=== PATIENT | female | born 1945 | race Caucasian/White ===

== ENCOUNTER 2016-12-06 06:49 | Inpatient (IN) | payer OTHER ==
[~2016-12-06] VITALS: Ht 165.1 cm; Wt 85.1 kg
[~2016-12-06 06:49] MED LIST: ACET325T40 PO; AMIO200T PO; NICO-523 TRANSDERM; RIVA10TA PO
[2016-12-06 06:54] VITALS: Ht 165.1 cm; Wt 85.1 kg
[2016-12-06] MEDS ORDERED: ALBUTEROL 0.083% (NEB) 2.5 MG/3 ML AMP HHN STA (07:16)
--- NOTE | 2016-12-06 07:16 | ERA ---
ER Documentation Chief Complaint Date/Time DATE: 12/06/16 TIME: 07:10 Chief Complaint CAME IN VIA INTAKE DUE SHORTNESS OF BREATH HPI Patient is a 71-year-old Jordanian speaking female brought in by her son after he was called to her house by other family members due to the patient being noted to have increased respiratory effort. The patient was noted to not be speaking or answering questions. The patient states that she has not spoken since yesterday morning. History is limited due to patient being aphasic, as well as language barrier and son being poor historian. The son states that the patient does not take any medication, but he does not know what medical condition she has. The patient currently smokes. ROS All systems reviewed and are negative except as per history of present illness. Medications Home Meds Active Scripts Rivaroxaban* (Xarelto*) 10 Mg Tablet, 20 MG PO WITH DINNER, #14 TAB 2 Refills Prov:PEBBLES JUAREZ MD 02/12/15 Nicotine* (Nicoderm* Patch) 1 Patch Patch, 1 PATCH TRANSDERM DAILY, #10 PATCH Prov:PEBBLES JUAREZ MD 02/12/15 Amiodarone Hcl* (Amiodarone Hcl*) 200 Mg Tab, 200 MG PO BID, #30 TAB Prov:PEBBLES JUAREZ MD 02/12/15 Acetaminophen (MAPAP) 325 Mg Tab, 650 MG PO Q6H Y for PAIN LEVEL 1-3 OR FEVER, # 1 TAB Prov:PEBBLES JUAREZ MD 02/12/15 Allergies Allergies: Coded Allergies: No Known Drug Allergies (Verified Allergy, Mild, 12/06/16) PMhx/Soc Past medical history: COPD, atrial fibrillation, hypertension, hyperlipidemia Past surgical history: Unobtainable Social history: Smokes tobacco, denies alcohol History of Surgery: Yes Anesthesia Reaction: No Hx Neurological Disorder: No Hx Respiratory Disorders: No Hx Cardiac Disorders: Yes Hx Psychiatric Problems: No Hx Miscellaneous Medical Probl: No Hx Alcohol Use: No Hx Substance Use: No Hx Tobacco Use: No FmHx Unobtainable Physical Exam Vitals Vital Signs Date Time Temp Pulse Resp B/P Pulse Ox O2 Delivery O2 Flow Rate FiO2 12/06/16 12:06 52 22 123/72 98 Nasal Cannula 2.0 12/06/16 10:30 51 18 111/64 99 Nasal Cannula 2.0 12/06/16 08:04 52 18 102/67 99 Nasal Cannula 2.0 12/06/16 07:56 50 15 96 Nasal Cannula 3.0 12/06/16 06:54 98.0 66 18 153/72 97 Physical Exam Const: Alert, not following commands Head: Atraumatic Eyes: Normal Conjunctiva, No pallor, no icterus, no disconjugate gaze, pupils equal and reactive ENT: Normal External Ears, Nose and Mouth. Mucous membranes moist Neck: Full range of motion..~ No meningismus. No JVD. No carotid bruit. Resp: Clear to auscultation bilaterally, No wheezes, no rales. Tachypnea. Cardio: Normal rate and rhythm, no murmurs Abd: Soft, non tender, non distended. Skin: No petechiae or rashes Back: No midline or flank tenderness Ext: No cyanosis, or edema Neur: Awake and alert, A phasic, no facial droop, gross movement of bilateral arms, motor exam limited by patient not following commands. Positive Babinski right foot. Negative left foot. Psych: Cannot assess Result Diagram: 12/06/1671612/06/16716 Results 24 hrs Laboratory Tests Test 12/06/16 07:10 12/06/16 07:17 12/06/16 07:21 12/06/16 09:22 Blood Gas Specimen Source Blood arterial Arterial Blood Date Drawn 12/06/2016 7:30:38 AM Arterial Blood pH (Temp corrected) 7.396 Arterial Blood pCO2 (Temp correct) 35.0mmhg Arterial Blood pO2 (Temp corrected) 47.1mmHG Arterial Blood HCO3 21.0mmol/L Arterial Blood Base Excess -3.2mmol/L Arterial Blood Oxygen Saturation 85.0mmHG Josue Test ACCEPTAB Arterial Blood Gas Puncture Site Right Radial Arterial Blood Carboxyhemoglobin 0.5% Arterial Blood Methemoglobin 0.2% Blood Gas A-a O2 Differential 60.7mmHg Oxyhemoglobin Percent 84.4% Total Hemoglobin 13.5g/dl Blood Gas Temperature 37.0C Blood Gas Modality ROOM AIR FiO2 21.0% Blood Gas Critical Value Read Back MD YVROSE Blood Gas Notified Whom CA Blood Gas Notified Time 12/06/2016 7:35:42 AM White Blood Count 7.310^3/ul Red Blood Count 4.4110^6/ul Hemoglobin 13.2g/dl Hematocrit 40.1% Mean Corpuscular Volume 90.9fl Mean Corpuscular Hemoglobin 29.9pg Mean Corpuscular Hemoglobin Concent 32.9g/dl Red Cell Distribution Width 12.4% Platelet Count 15998^3/UL Mean Platelet Volume 10.5fl Neutrophils % 70.6% Lymphocytes % 21.8% Monocytes % 5.9% Eosinophils % 1.1% Basophils % 0.3% Nucleated Red Blood Cells % 0.0/100WBC Neutrophils # 5.110^3/ul Lymphocytes # 1.610^3/ul Monocytes # 0.410^3/ul Eosinophils # 0.110^3/ul Basophils # 0.010^3/ul Nucleated Red Blood Cells # 0.010^3/ul Prothrombin Time 12.7Sec Prothrombin Time Ratio 1.0 INR International Normalized Ratio 0.95 Activated Partial Thromboplast Time 32.9Sec Sodium Level 142mmol/L Potassium Level 4.1mmol/L Chloride Level 109mmol/L Carbon Dioxide Level 26mmol/L Anion Gap 11 Blood Urea Nitrogen 23mg/dl Creatinine 1.14mg/dl Glucose Level 140mg/dl Calcium Level 8.8mg/dl Total Bilirubin 0.8mg/dl Direct Bilirubin 0.00mg/dl Indirect Bilirubin 0.8mg/dl Aspartate Amino Transf (AST/SGOT) 18IU/L Alanine Aminotransferase (ALT/SGPT) 22IU/L Alkaline Phosphatase 87IU/L Troponin I < 0.012ng/ml B-Type Natriuretic Peptide 469PG/ML Total Protein 7.7g/dl Albumin 4.0g/dl Globulin 3.70g/dl Albumin/Globulin Ratio 1.08 Bedside Glucose 149mg/dL Urine Color YELLOW Urine Clarity CLEAR Urine pH 5.0 Urine Specific [place] 1.013 Urine Ketones NEGATIVEmg/dL Urine Nitrite NEGATIVEmg/dL Urine Bilirubin NEGATIVEmg/dL Urine Urobilinogen NEGATIVEmg/dL Urine Leukocyte Esterase NEGATIVELeu/ul Urine Hemoglobin NEGATIVEmg/dL Urine Glucose NEGATIVEmg/dL Urine Total Protein NEGATIVEmg/dl Urine Opiates Screen Negative Urine Barbiturates Negative Urine Amphetamines Screen Negative Urine Benzodiazepines Screen Negative Urine Cocaine Screen Negative Urine Cannabinoids Negative Test 12/06/16 10:05 12/06/16 10:07 Creatine Kinase 57IU/L Creatine Kinase Index 0.7 Creatinine Kinase MB (Mass) 0.39ng/ml Troponin I < 0.012ng/ml Hemoglobin A1c 5.4% Current Medications Medications (Trade) Dose Ordered Sig/Maribell Route PRN Reason Start Time Stop Time Status Last Admin Dose Admin Albuterol (Proventil 0.083% (Neb)) 2.5 mg ONCE STAT HHN 12/06/16 07:16 12/06/16 07:17 DC 12/06/16 07:55 Aspirin (Aspirin) 300 mg ONCE ONCE VA 12/06/16 08:00 12/06/16 08:01 DC 12/06/16 08:00 Ondansetron HCl (Zofran Inj) 4 mg ER BRIDGE PRN IV NAUSEA AND/OR VOMITING 12/06/16 09:00 12/06/16 09:41 DC Acetaminophen (Tylenol Tab) 650 mg ER BRIDGE PRN PO MILD PAIN/FEVER 12/06/16 09:00 12/06/16 09:41 DC Acetaminophen (Tylenol Tab) 650 mg Q6H PRN PO PAIN LEVEL 1-3 OR FEVER 12/06/16 09:30 Amiodarone HCl (Cordarone) 200 mg BID PO 12/06/16 21:00 Nicotine (Nicoderm 7 Mg/ 24 Hr) 1 patch DAILY TRANSDERM 12/07/16 09:00 Atorvastatin Calcium (Lipitor) 80 mg QHS PO 12/06/16 21:00 Aspirin 81 mg 81 mg DAILY PO 12/07/16 09:00 Sodium Chloride (NS) 1,000 ml @ 60 mls/hr [id number] IV 12/06/16 09:12 12/06/16 10:07 IV Flush (NS 3 ml) 3 ml PER PROTOCOL IV 12/06/16 09:30 Ondansetron HCl (Zofran Inj) 4 mg Q6H PRN IV NAUSEA AND/OR VOMITING 12/06/16 09:30 Acetaminophen (Tylenol Tab) 650 mg Q6H PRN PO PAIN LEVEL 1-3 OR FEVER 12/06/16 09:30 UNV Acetaminophen (Tylenol Supp) 650 mg Q6H PRN VA PAIN LEVEL 1-3 OR FEVER 12/06/16 09:30 Acetaminophen/ Hydrocodone Bitart ([place] (5/325)) 1 tab Q6H PRN PO MODERATE PAIN LEVEL 4-6 12/06/16 09:30 Acetaminophen/ Hydrocodone Bitart ([place] (5/325)) 2 tab Q6H PRN PO SEVERE PAIN LEVEL 7-10 12/06/16 09:30 Morphine Sulfate (morphine) 2 mg Q4H PRN IV SEVERE PAIN LEVEL 7-10 12/06/16 09:30 Docusate Sodium (Colace) 100 mg Q12H PRN PO CONSTIPATION 12/06/16 09:30 Magnesium Hydroxide (Milk Of Mag) 30 ml DAILY PRN PO CONSTIPATION 12/06/16 09:30 Bisacodyl (Dulcolax Supp) 10 mg DAILY PRN VA CONSTIPATION 12/06/16 09:30 Pantoprazole (Protonix Iv) 40 mg DAILY@06 IV 12/07/16 06:00 Albuterol/ Ipratropium (Duoneb) 3 ml Q4 PRN HHN dyspnea 12/06/16 09:30 Procedures/MDM EKG read by me: Time 710, rate 59 Rhythm: Sinus bradycardia [place]: Normal Intervals: Normal ST-T waves: no ischemic changes Ectopy: No Q-waves: No Impression: No evidence of ischemia or arrhythmia Arterial blood gas interpretation: PH 7.396 is normal. PCO2 of 35 is normal PO2 of 47 is consistent with hypoxemia Bicarbonate of 21 is normal MDM: Patient is a 71-year-old female who presented to the ER with abnormal breathing. The patient was found to be a phasic, and CT of the head confirmed acute stroke. The patient was last known well approximately 24 hours prior to presentation, so was out of the window for TPA or endovascular intervention. She was given aspirin. With regards to the patient's breathing, there is no significant wheeze or prolonged expiration. The patient had a normal pulse ox on the monitor, but ABG showed hypoxemia. The patient was placed on nasal cannula oxygen and given nebulizer treatment. There is no evidence of coronary ischemia, arrhythmia, or CHF. There is no evidence of pneumonia. I have low suspicion for pulmonary embolism given the patient's extensive smoking history and history of COPD. Blood gas showed no evidence of CO2 retention. Patient will be admitted to the hospital for further stroke workup and treatment as well as further treatment of underlying pulmonary disease. Departure Diagnosis: Primary Impression: Acute ischemic stroke Additional Impressions: Hypoxemia COPD (chronic obstructive pulmonary disease) Qualified Code: J44.9 - Chronic obstructive pulmonary disease, unspecified COPD type Condition: ALEENA Kelly MD Dec 06, 2016 07:16
--- NOTE | 2016-12-06 07:24 | RADRPT ---
PROCEDURE: XR Chest. CLINICAL INDICATION: Chest pain, CVA TECHNIQUE: Single frontal view of the chest was obtained. COMPARISON: CR CHEST 02/12/2015 FINDINGS: The heart is within normal limits. The thoracic aorta is calcified. The lungs are clear. There is no pleural effusion or pneumothorax. RPTAT: AA IMPRESSION: No acute disease. Calcified aorta consistent with atherosclerotic disease. .Rosalino Del Cid MD, MD Date Time Electronically viewed and signed by .Rosalino Del Cid MD, on 12/06/2016 07:23 .S/
[2016-12-06 07:35] LABS: AADO2 Arterial 60.7 mmHg (7.0-24.0); Allen Test ACCEPTAB; Arterial Base Excess -3.2 mmol/L (-3.0-3); Arterial COHb 0.5 % (0.0-3.0); Arterial Fraction of Oxyhgb 84.4 % (93.0-99.0); Arterial MetHb 0.2 % (0.0-1.5); Arterial Total Hemglobin 13.5 g/dl (12.0-18.0); MODE ROOM AIR
[2016-12-06 07:43] LABS: BASOPHILS % 0.3 % (0.0-2.0); EOSINOPHILS # 0.1 10^3/ul (0.0-0.5); EOSINOPHILS % 1.1 % (0.0-7.0); HEMATOCRIT 40.1 % (37.0-47.0); HEMOGLOBIN 13.2 g/dl (12.0-16.0); LYMPHOCYTES # 1.6 10^3/ul (0.8-2.9); LYMPHOCYTES % 21.8 % (15.0-51.0); MEAN CORPUSCULAR HEMOGLOBIN 29.9 pg (29.0-33.0); MEAN CORPUSCULAR HGB CONC 32.9 g/dl (32.0-37.0); MEAN CORPUSCULAR VOLUME 90.9 fl (82.0-101.0); MEAN PLATELET VOLUME 10.5 fl (7.4-10.4); MONOCYTE # 0.4 10^3/ul (0.3-0.9); MONOCYTES % 5.9 % (0.0-11.0); NEUTROPHIL # 5.1 10^3/ul (1.6-7.5); NEUTROPHILS % 70.6 % (39.0-77.0); PLATELET COUNT 244 10^3/UL (140-415); RED BLOOD COUNT 4.41 10^6/ul (4.20-5.40); RED CELL DISTRIBUTION WIDTH 12.4 % (11.5-14.5); WHITE BLOOD COUNT 7.3 10^3/ul (4.8-10.8)
--- NOTE | 2016-12-06 07:58 | RADRPT ---
PROCEDURE: CT Brain without contrast. CLINICAL INDICATION: Aphasia. Cerebrovascular accident. TECHNIQUE: A CT of the brain without contrast was performed utilizing axial sections from the skul l base through the vertex. The patient was scanned without intravenous contrast enhancement. Sagitta l and coronal reformatted images were obtained using the data from the axial images. Total exam DLP is 630.20 mGy-cm. CTDIvol is 44.77 mGy. One or more of the following dose reduction techniques we re used: Automated exposure control, adjustment of the mA and/or kV according to patient size, use o f iterative reconstruction technique. COMPARISON: CT scan of the brain dated 02/11/2015. FINDINGS: There is loss of sebastian and white matter differentiation in the left frontal lobe posteriorly/parietal lobe consistent with an acute infarct measuring 4.3 x 3.4 centimeter in AP and transverse dimension s. There is no hemorrhage at this site or elsewhere. There is no mass effect. The ventricles and cisterns are normal. Vascular calcifications are present consistent with atheros clerosis. There is no intracranial hemorrhage or space-occupying lesion. There is no skull fracture or lytic lesion. IMPRESSION: 1. Acute infarct in the left frontal lobe posteriorly/parietal lobe. 2. No intracranial hemorrhage. 3. Atherosclerosis. 4. Otherwise unremarkable study. Call report: A call report of the findings was made to Dr. Beck on 12/06/2016 at 0753 hours. RPTAT: QQ .Matteo Wise MD, Date Time Electronically viewed and signed by .Matteo Wise MD, on 12/06/2016 07:58 .R/
[2016-12-06] MEDS ORDERED: ASPIRIN 300 MG SUPP PR ONE (08:00)
[2016-12-06 08:01] LABS: ALANINE AMINOTRANSFERASE 22 IU/L (13-69); ALBUMIN/GLOBULIN RATIO 1.08; ALKALINE PHOSPHATASE 87 IU/L (42-121); ANION GAP 11 (8-16); ASPARTATE AMINO TRANSFERASE 18 IU/L (15-46); BILIRUBIN,INDIRECT 0.8 mg/dl (0-1.1); BILIRUBIN,TOTAL 0.8 mg/dl (0.2-1.3); BLOOD UREA NITROGEN 23 mg/dl (7-20); CALCIUM 8.8 mg/dl (8.4-10.2); CARBON DIOXIDE 26 mmol/L (21-31); CHLORIDE 109 mmol/L (97-110); CREATININE 1.14 mg/dl (0.44-1.00); GLUCOSE 140 mg/dl (70-220); POTASSIUM 4.1 mmol/L (3.5-5.1); SODIUM 142 mmol/L (135-144); TOTAL PROTEIN 7.7 g/dl (6.1-8.1)
[2016-12-06 08:13] LABS: B-TYPE NATRIURETIC PEPTIDE 469 PG/ML (0-125)
[2016-12-06 08:18] LABS: TROPONIN-I < 0.012 ng/ml (0.00-0.12)
[2016-12-06 08:20] LABS: INR 0.95; PROTIME 12.7 Sec (12.2-14.2)
[2016-12-06 08:21] LABS: PARTIAL THROMBOPLASTIN TIME 32.9 Sec (25.0-35.0)
[2016-12-06] MEDS ORDERED: ACETAMINOPHEN 325 MG TAB PO PRN ×2 (09:00→09:30)
[2016-12-06] MEDS ORDERED: ONDANSETRON 4 MG INJ IV PRN ×2 (09:00→09:30)
[2016-12-06] MEDS ORDERED: HYDROCODONE/APAP (5/325) TAB PO PRN ×2 (09:30)
[2016-12-06] MEDS ORDERED: morphine 2 MG INJ IV PRN (09:30)
[2016-12-06] MEDS ORDERED: DOCUSATE SODIUM 100 MG CAP PO PRN (09:30)
[2016-12-06] MEDS ORDERED: ACETAMINOPHEN 650 MG SUPP PR PRN (09:30)
[2016-12-06] MEDS ORDERED: BISACODYL 10 MG SUPP PR PRN (09:30)
[2016-12-06] MEDS ORDERED: MAGNESIUM HYDROXIDE 30ML CUP PO PRN (09:30)
[2016-12-06] MEDS ORDERED: NACL 0.9% 3 ML SYG IV SCH (09:30)
[2016-12-06] MEDS ORDERED: ALBUTEROL/IPRATROPIUM (NEB) 3 ML AMP HHN PRN (09:30)
[2016-12-06 09:50] LABS: ADD UMIC NO; UR ASCORBIC ACID NEGATIVE (NEGATIVE); UR BILIRUBIN (Dip) NEGATIVE (NEGATIVE); UR BLOOD (Dip) NEGATIVE (NEGATIVE); UR CLARITY CLEAR (CLEAR); UR COLOR YELLOW (YELLOW); UR GLUCOSE (Dip) NEGATIVE (NEGATIVE); UR KETONES (Dip) NEGATIVE (NEGATIVE); UR LEUKOCYTE ESTERASE (Dip) NEGATIVE Leu/ul (NEGATIVE); UR NITRITE (Dip) NEGATIVE (NEGATIVE); UR SPECIFIC GRAVITY (Dip) 1.013 (1.003-1.030); UR TOTAL PROTEIN (Dip) NEGATIVE (NEGATIVE); UR UROBILINOGEN (Dip) NEGATIVE (NEGATIVE)
[2016-12-06] MEDS: SOD CHLORIDE 0.9% 1,000 ML IV SCH (10:07)
[2016-12-06 10:18] LABS: BARBITURATES Negative (NEGATIVE); BENZODIAZEPINES Negative (NEGATIVE); CANNABINOIDS Negative (NEGATIVE); COCAINE Negative (NEGATIVE); OPIATES Negative (NEGATIVE)
[2016-12-06 10:46] LABS: CREATINE KINASE 57 IU/L (23-200)
[2016-12-06 10:57] LABS: CK-MB 0.39 ng/ml (0.0-2.4); TROPONIN-I < 0.012 ng/ml (0.00-0.12)
--- NOTE | 2016-12-06 12:07 | RADRPT ---
PROCEDURE: MR Brain without contrast. CLINICAL INDICATION: Neurologic deficit TECHNIQUE: An MRI of the brain was performed on a high-resolution MR scanner utilizing the followi ng sequences: Sagittal and axial T1 weighted, axial T2 weighted, axial FLAIR, coronal GRE, and axial diffusion weighted with ADC mapping. Images were reviewed high-resolution PACS workstation. No con trast was administered. COMPARISON: Head CT earlier today FINDINGS: Diffusion restriction with FLAIR hyperintensity left caudate, left insula, left frontal lobe, left f rontal operculum, left insula, left parietal lobe. There is also diffusion signal hyperintensity and FLAIR hyperintensity right inferior occipital lobe and right posterior temporal lobe. A few tiny scattered cerebral white matter T2-weighted/FLAIR hyp erintensities are identified. No suspicious parenchymal hypointense signal abnormalities are seen on the GRE images to suggest the presence of blood degradation products. The ventricles are normal in size for age. Normal flow voids are visible in the proximal intracranial arteries suggesting their patency. Right maxillary sinus mucosal thickening. IMPRESSION: Recent, subacute left MCA territory infarct. No acute parenchymal hemorrhage or midline shift. Late subacute to chronic right [employer] territory infarct. Minimal chronic microvascular disease. RPTAT: AA .Rashid Duran MD, Date Time Electronically viewed and signed by .Rashid Duran MD, MD on 12/06/2016 12:07 .T/
[2016-12-06 14:10] VITALS: TEMP 98.1
[2016-12-06 16:07] LABS: CREATINE KINASE 57 IU/L (23-200)
[2016-12-06 16:20] LABS: CK-MB 0.29 ng/ml (0.0-2.4); TROPONIN-I < 0.012 ng/ml (0.00-0.12)
--- NOTE | 2016-12-06 17:18 | HP ---
Date/Time of Note Date/Time of Note DATE: 12/06/16 TIME: 17:11 Assessment/Plan VTE Prophylaxis VTE Prophylaxis Intervention: SCD's Lines/Catheters IV [facility] [place] Assessment/Plan Chief Complaint/Hosp Course Impression and plan 1. Acute CVA. Patient did have CT scan showing acute infarct in the left frontal lobe posteriorly/parietal lobe. Additionally MRI of the brain was ordered but did show to have recent subacute left MCA territory infarct but no acute parenchymal hemorrhage or midline shift. There is also seen late subacute to chronic right CRAB[place] territory infarct and minimal chronic microvascular disease. Patient to be placed on antiplatelet therapy as well as statin medication. We will also get neurologist consultation as well as PT/OT/ ST 2. Reported history of cardiac arrhythmia. Will resume patient's amiodarone. Follow-up on echocardiogram. Patient does have history of ablation 3 years ago. Will follow up. Electrician Wiring to follow pending clinical course. 3. Suspect dyslipidemia. Follow-up on fasting lipid panel. Start on statin for now. 4. Obesity. Weight reduction to be advised. 5. History of nicotine abuse. Cessation was advised. Admission process >40 minutes Discussed plan of care with Dr. Atkinson Problems: HPI/ROS Admit Date/Time Admit Date/Time Hx of Present Illness This is a 71-year-old female with reported history of cardiac arrhythmia status post ablation, suspect this lipidemia, hypertension, came to [facility] due to reports of aphasia. According to patient's family she was in her normal state of health however the afternoon prior to admission she was noticed by family to be speaking less than usual. No reported extremity weakness was seen but patient did remain quiet. No reports of dysphagia seen. On the morning of admission patient still remained and as such was brought to [facility] for further evaluation. She did have a CT scan of her brain to be primarily nonverbal that did show an acute infarct in the left frontal lobe posteriorly/parietal lobe. No intracranial hemorrhage was seen. She was also noted to be bradycardic with heart rate in the 50s. She was also seen with some acute renal insufficiency with creatinine of 1.14 BUN of 24. Serial troponins negative and her BNP was noted at 469. She remained afebrile and urinalysis unremarkable. Patient also was with reported some shortness of breath however she is a current everyday smoker and does have an extensive history of cigarette smoking. Chest x-ray showed no acute disease however did show calcified aorta consistent with atherosclerotic disease. Currently the patient was seen and evaluated with bilateral upper and lower extremity strength +5. She is not completely aphasic but does have difficulty with saying some words. She is alert and oriented to situation place and time. We will evaluate her for the aformentiond issues. ROS 12 point review of systems obtained and entirely negative except as mentioned in the history of present illness PMH/Family/Social Past Medical History Medical/surgical history 1. Suspect this of anemia 2. 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 Hansen 3. Obesity 4. Suspect dyslipidemia 5. Atherosclerotic disease Family History Significant Family History: no pertinent family hx Social History Smoking Status: Current every day smoker Drug Use: none Exam/Review of Systems Vital Signs Vitals Vital Signs Date Time Temp Pulse Resp B/P Pulse Ox O2 Delivery O2 Flow Rate FiO2 12/06/16 16:05 56 18 129/82 100 Nasal Cannula 2.0 12/06/16 14:10 98.1 Exam Constitutional: alert, oriented, other Head: normocephalic (Aphasic) Respiratory: clear to auscultation, normal air movement Cardiovascular: other Gastrointestinal: non-tender, soft (Bradycardic) Extremities: normal pulses Neurological: other (Aphasic. I did with strength on bilateral upper and lower extremities +5) Labs Result Diagram: 12/06/1671612/06/1617 Medications Medications Current Medications Acetaminophen (Tylenol Tab) 650 mg Q6H PRN PO PAIN LEVEL 1-3 OR FEVER; Start 12/06/16 at 09:30 Amiodarone HCl (Cordarone) 200 mg BID PO ; Start 12/06/16 at 21:00 Nicotine (Nicoderm 7 Mg/ 24 Hr) 1 patch DAILY TRANSDERM ; Start 12/07/16 at 09: 00 Atorvastatin Calcium (Lipitor) 80 mg QHS PO ; Start 12/06/16 at 21:00 Aspirin 81 mg 81 mg DAILY PO ; Start 12/07/16 at 09:00 Sodium Chloride (NS) 1,000 ml @ 60 mls/hr [id number] IV Last administered on 12/06t 10:07; Admin Dose 60 MLS/HR; Start 12/06/16 at 09:12 Ondansetron HCl (Zofran Inj) 4 mg Q6H PRN IV NAUSEA AND/OR VOMITING; Start 12/06/16 at 09:30 Acetaminophen (Tylenol Supp) 650 mg Q6H PRN IN PAIN LEVEL 1-3 OR FEVER; Start 12/06/16 at 09:30 Acetaminophen/ Hydrocodone Bitart ([place] (5/325)) 1 tab Q6H PRN PO MODERATE PAIN LEVEL 4-6; Start 12/06/16 at 09:30 Acetaminophen/ Hydrocodone Bitart ([place] (5/325)) 2 tab Q6H PRN PO SEVERE PAIN LEVEL 7-10; Start 12/06/16 at 09:30 Morphine Sulfate (morphine) 2 mg Q4H PRN IV SEVERE PAIN LEVEL 7-10; Start 12/06 at 09:30 Docusate Sodium (Colace) 100 mg Q12H PRN PO CONSTIPATION; Start 12/06/16 at 09: 30 Magnesium Hydroxide (Milk Of Mag) 30 ml DAILY PRN PO CONSTIPATION; Start at 09:30 Bisacodyl (Dulcolax Supp) 10 mg DAILY PRN IN CONSTIPATION; Start 12/06/16 at 09 :30 Pantoprazole (Protonix Iv) 40 mg DAILY@06 IV ; Start 12/07/16 at 06:00 Albuterol/ Ipratropium (Duoneb) 3 ml Q4 PRN HHN dyspnea; Start 12/06/16 at 09: 30 TIFFANIE TILLMAN Dec 06, 2016 17:18
[2016-12-06 17:52] VITALS: BMI 31.2
--- NOTE | 2016-12-06 17:58 | RADRPT ---
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 Physician: TIFFANIE TILLMAN Quality: Adequate Procedures: Transthoracic echocardiogram with complete 2D, M-Mode, and doppler examination. Indications: Cerebrovascular Accident. 2D/M Mode Doppler Measurement Value Normal Ranges Measurement Value Normal Ranges LVIDd 2D 4.6 3.5 - 5.6 cm AV Peak Esteban 1.7 m/sec LVIDs 2D 3.0 2.1 - 4.1 cm AV Peak PG 11.0 mmHg FS 2D 34.8 % LVOT Peak Esteban 1.2 m/sec LVPWd 2D 1.3 0.6 - 1.1 cm LVOT Peak PG 6.0 mmHg IVSd 2D 1.3 0.6 - 1.1 cm MV E Peak Esteban 1.1 m/sec IVS/LVPW 2D 1.0 MV A Peak Esteban 0.6 m/sec AoR Diam 2D 2.7 2.0 - 3.7 cm MV E/A 1.9 LA/Ao 2D 1 0 - 1 MV Decel Time 250 msec EDV 2D 98.6 cm3 MV E/A 1.9 ESV 2D 27.3 cm3 MR Peak PG 102.0 mmHg LA Dimen 2D 4.0 2.3 - 4.0 cm MR Peak Esteban 5.0 m/sec TR Peak Esetban 2.4 m/sec TR Peak PG 23.0 mmHg RVSP 33.0 mmHg Findings Left Ventricle: Normal left ventricular systolic function. Normal left ventricular cavity size. Mild concentric left ventricular hypertrophy. Ejection fraction is visually estimated at 65 %. Right Ventricle: Normal right ventricular size. Normal right ventricular systolic function. Left Atrium: Upper limit of normal left atrial size. Right Atrium: The right atrium is normal in size. Mitral Valve: Mild mitral leaflet calcification. Mild mitral annular calcification. Mild mitral valve regurgitation. Aortic Valve: No hemodynamically significant aortic stenosis by doppler. Aortic sclerosis without stenosis. Left coronary cusp appears moderately calcified. Non coronary cusp appears moderately calcified. Trileaflet aortic valve. Trace aortic valve regurgitation. Tricuspid Valve: Normal appearance of the tricuspid valve. Estimated peak PA systolic pressure 33 mmHg. There is mild tricuspid regurgitation. Pulmonic Valve: Pulmonic valve not well visualized. There is trace pulmonic regurgitation. Pericardium: Normal pericardium with no significant pericardial effusion. Aorta: Normal aortic root. IVC: Normal size with poor respiratory collapse consistent with elevated right atrial pressure. Conclusions 1.Normal left ventricular systolic function. Normal left ventricular cavity size. Mild concentric left ventricular hypertrophy. Ejection fraction is visually estimated at 65 %. 2.Upper limit of normal left atrial size. 3.Mild mitral leaflet calcification. Mild mitral annular calcification. Mild mitral valve regurgitation. 4.No hemodynamically significant aortic stenosis by doppler. Aortic sclerosis without stenosis. Left coronary cusp appears moderately calcified. Non coronary cusp appears moderately calcified. Trileaflet aortic valve. Trace aortic valve regurgitation. 5.Normal appearance of the tricuspid valve. Estimated peak PA systolic pressure 33 mmHg. There is mild tricuspid regurgitation. Electronically Signed By: Steve Georges 06-Dec-2016 17:57:36 -0700 Patient Name: RONNA NAQVI Study Date: 06-Dec-2016 [id number]
[2016-12-06 18:04] VITALS: PULSE 101
[2016-12-06 18:08] VITALS: BP 126/79; RESP 16
[2016-12-06 19:50] VITALS: BP 155/98; RESP 19
[2016-12-06 20:02] VITALS: PULSE 110
[2016-12-06] MEDS: ATORVASTATIN 80 MG TAB PO SCH (21:00)
[2016-12-06] MEDS: AMIODARONE 200 MG TAB PO SCH (21:00)
[2016-12-06 23:52] VITALS: BP 147/90; RESP 18
[2016-12-07] VITALS (12 sets, daily range): BP systolic 114–155; BP diastolic 70–88; PULSE 103–130; RESP 16–19
[2016-12-07] MEDS: SOD CHLORIDE 0.9% 1,000 ML IV SCH ×3 (01:52→22:08)
--- NOTE | 2016-12-07 02:38 | CONS ---
DATE OF ADMISSION: 12/06/2016 DATE OF CONSULTATION: 12/06/2016 NEUROLOGICAL CONSULTATION Thank you for your kind referral for evaluation of aphasia. HISTORY OF PRESENT ILLNESS: The patient is a 71-year-old lady with past medical history of cardiac dysrhythmias, status post ablation 2 years ago, who presented after 1 or 2 days of speech difficulties. HOME MEDICATIONS: Included: 1. Nicotine. 2. Xarelto. 3. Amiodarone. So far in the hospital, she was continued on: 1. Nicotine. 2. Aspirin 81 mg. 3. Amiodarone. 4. Lipitor 80 mg. ALLERGIES: THE PATIENT IS NOT ALLERGIC TO ANY MEDICINES. SOCIAL HISTORY: She is a smoker. No alcohol or drug use. FAMILY HISTORY: Noncontributory. LABORATORY DATA: Shows normal CBC and comprehensive metabolic panel, BUN of 23 , creatinine 1.14. Normal liver function tests, negative troponins. BNP 469. Albumin 4. Normal PT, PTT. Urinalysis negative. Tox screen negative for substances of abuse. She had CAT scan followed by MRI of the brain. MRI of the brain was read as recent subacute left MCA territory infarct, no hemorrhage or midline shift. Also, late subacute to chronic right BATTERY RECHARGER territory infarct. EKG showed sinus rhythm, mild LVH seen on echocardiogram. PHYSICAL EXAMINATION: VITAL SIGNS: Today, temperature 98.4, pulse 117, 19 respirations, 155/96 blood pressure. GENERAL: She is not in acute distress, lying in bed. HEENT: Normocephalic, atraumatic head. NECK: No carotid bruits. No thyromegaly. LUNGS: Clear to auscultation bilaterally. CARDIAC: Normal cardiac rhythm and sounds. ABDOMEN: Soft, nontender. EXTREMITIES: No cyanosis, clubbing or edema. NEUROLOGIC: She is lethargic, easily arousable by voice, does not follow commands, not verbal, not cooperative with examination, tries to fall asleep. Present response to visual threat bilaterally. Pupils reactive from 3 to 2 mm bilaterally. Extraocular movements intact without nystagmus. Symmetrical face. Preserved facial strength. Corneal reflexes present bilaterally. Motor strength examination seems to be preserved. The patient moves all extremities spontaneously and to minimal noxious stimulation. I do not feel any asymmetry. Again, she was not cooperative with pronator drift testing, but she seems to be moving extremities symmetrically. Deep tendon reflexes 2+ upper extremities , absent in lower extremities. No definite response to plantar stimulation bilaterally. Coordination is preserved when she is reaching for objects. No dysmetria or tremor. IMPRESSION: Acute stroke with aphasia, left MCA territory distribution. A late subacute versus chronic right BATTERY RECHARGER territory stroke. Patient was on anticoagulation, but not sure about compliance. Given the relatively large area for stroke, I would agree to hold anticoagulation until 1 or 2 weeks after acute stroke to decrease chance of hemorrhagic transformation. We will continue aspirin by now. We will continue high dose statin. I do not think that patient received her medicines given that she was not cleared by speech therapy. We will get speech and swallow evaluation, as well as physical therapy evaluation. Today is second/third day after onset of her symptoms, so it is probably okay to keep her normotensive, keep her euglycemic. Thank you very much for this interesting consultation. Nicotine patch. Lipid profile is pending as well. Dictated By: MARY KATE/RAJAT Conf#: [id number] DID#: [id number] CC: GARTH RETANA;*Arnav* MTDD
[2016-12-07] MEDS ORDERED: PANTOPRAZOLE 40 MG INJ IV SCH (06:00)
[2016-12-07] MEDS: ASPIRIN 81 MG TAB PO SCH (07:27)
[2016-12-07] MEDS: AMIODARONE 200 MG TAB PO SCH ×2 (07:27→21:00)
[2016-12-07 08:57] LABS: ALBUMIN 3.7 g/dl (3.3-4.9); ALBUMIN/GLOBULIN RATIO 1.02; BILIRUBIN,INDIRECT 1.9 mg/dl (0-1.1); BILIRUBIN,TOTAL 1.9 mg/dl (0.2-1.3); CALCIUM 9.3 mg/dl (8.4-10.2); CHOL/HDL RATIO 5.8 RATIO; CREATININE 1.05 mg/dl (0.44-1.00); MAGNESIUM 1.7 mg/dl (1.7-2.5); PHOSPHORUS 4.2 mg/dl (2.5-4.9); TOTAL PROTEIN 7.3 g/dl (6.1-8.1)
[2016-12-07] MEDS ORDERED: INFLUENZA VIRUS VACCINE 0.5 ML SYG IM* ONE (09:00)
[2016-12-07 09:29] LABS: THYROID STIMULATING HORMONE 0.51 MIU/L (0.465-4.680)
[2016-12-07 10:00] LABS: T3 UPTAKE 34.6 % (23.5-40.5)
[2016-12-07] MEDS: NICOTINE (7 MG/24 HR) PATCH TRANSDERM SCH (10:13)
[2016-12-07] MEDS ORDERED: DIGOXIN 0.125 MG TAB PO ONE (13:30)
--- NOTE | 2016-12-07 13:49 | PN ---
Date/Time of Note Date/Time of Note DATE: 12/07/16 TIME: 13:26 Assessment/Plan VTE Prophylaxis VTE Prophylaxis Intervention: SCD's Lines/Catheters IV Catheter Type (from Nrs): Peripheral IV Assessment/Plan Chief Complaint/Hosp Course Impression and plan 1. Acute CVA. Patient did have CT scan showing acute infarct in the left frontal lobe posteriorly/parietal lobe. Additionally MRI of the brain was ordered but did show to have recent subacute left MCA territory infarct but no acute parenchymal hemorrhage or midline shift. There is also seen late subacute to chronic right BRICK WHEELER territory infarct and minimal chronic microvascular disease. Patient to be placed on antiplatelet therapy as well as statin medication. Continue with neurologist recommendations. PT/OT/ST is following. 2. Reported history of cardiac arrhythmia. Echocardiogram with preserved ejection fraction. Now noted with Elaina bradley with RVR. Will get carbon sequestration plant operator consultation. 3. Suspect dyslipidemia continue on statin medication. 4. Obesity. Weight reduction to be advised. 5. History of nicotine abuse. Cessation was advised. Disposition and plan: Spike Machine Heater consultation to follow. Monitor on telemetry. Continued rehab services. Discussed plan of care with Dr. Atkinson Problems: Subjective 24 Hr Interval Summary Free Text/Dictation No reports of chest pain with seen in and out of Elaina bradley with RVR per telemetry monitoring Exam/Review of Systems Vital Signs Vitals Vital Signs Date Time Temp Pulse Resp B/P Pulse Ox O2 Delivery O2 Flow Rate FiO2 12/07/16 12:04 98.8 82 18 137/83 97 12/06/16 17:30 Nasal Cannula 2.0 Exam Constitutional: alert, oriented, other Head: normocephalic Respiratory: clear to auscultation, normal air movement Cardiovascular: other afib with rvr to sinus Gastrointestinal: non-tender, Extremities: normal pulses Neurological: other with noted weakness BLE. able to form some words but unable to put together sentences Results Result Diagram: 12/06/16 0717 12/07/16 0730 Results 24 hrs Laboratory Tests Test 12/06/16 15:34 12/07/16 07:30 Creatine Kinase 57 Creatine Kinase Index 0.5 Creatinine Kinase MB (Mass) 0.29 Troponin I < 0.012 Sodium Level 140 Potassium Level 4.0 Chloride Level 110 Carbon Dioxide Level 25 Anion Gap 9 Blood Urea Nitrogen 20 Creatinine 1.05 H Glucose Level 88 # Hemoglobin A1c 5.2 Calcium Level 9.3 Phosphorus Level 4.2 Magnesium Level 1.7 Total Bilirubin 1.9 H Direct Bilirubin 0.00 Indirect Bilirubin 1.9 H Aspartate Amino Transf (AST/SGOT) 20 Alanine Aminotransferase (ALT/SGPT) 23 Alkaline Phosphatase 95 Total Protein 7.3 Albumin 3.7 Globulin 3.60 H Albumin/Globulin Ratio 1.02 Triglycerides Level 106 Cholesterol Level 211 H LDL Cholesterol, Calculated 154 HDL Cholesterol 36 Cholesterol/HDL Ratio 5.8 Thyroid Stimulating Hormone (TSH) 0.510 Free Thyroxine Index 3.88 Thyroxine (T4) 11.2 H Triiodothyronine (T3) Uptake 34.6 Medications Medications Current Medications Acetaminophen (Tylenol Tab) 650 mg Q6H PRN PO PAIN LEVEL 1-3 OR FEVER; Start 12/06/16 at 09:30 Amiodarone HCl (Cordarone) 200 mg BID PO ; Start 12/06/16 at 21:00 Nicotine (Nicoderm 7 Mg/ 24 Hr) 1 patch DAILY TRANSDERM ; Start 12/07/16 at 09: 00 Atorvastatin Calcium (Lipitor) 80 mg QHS PO ; Start 12/06/16 at 21:00 Aspirin 81 mg 81 mg DAILY PO ; Start 12/07/16 at 09:00 Sodium Chloride (NS) 1,000 ml @ 60 mls/hr [id number] IV Last administered on 12/06t 10:07; Admin Dose 60 MLS/HR; Start 12/06/16 at 09:12 Ondansetron HCl (Zofran Inj) 4 mg Q6H PRN IV NAUSEA AND/OR VOMITING; Start 12/06/16 at 09:30 Acetaminophen (Tylenol Supp) 650 mg Q6H PRN [place] PAIN LEVEL 1-3 OR FEVER; Start 12/06/16 at 09:30 Acetaminophen/ Hydrocodone Bitart ([place] (5/325)) 1 tab Q6H PRN PO MODERATE PAIN LEVEL 4-6; Start 12/06/16 at 09:30 Acetaminophen/ Hydrocodone Bitart ([place] (5/325)) 2 tab Q6H PRN PO SEVERE PAIN LEVEL 7-10; Start 12/06/16 at 09:30 Morphine Sulfate (morphine) 2 mg Q4H PRN IV SEVERE PAIN LEVEL 7-10; Start 12/06 at 09:30 Docusate Sodium (Colace) 100 mg Q12H PRN PO CONSTIPATION; Start 12/06/16 at 09: 30 Magnesium Hydroxide (Milk Of Mag) 30 ml DAILY PRN PO CONSTIPATION; Start at 09:30 Bisacodyl (Dulcolax Supp) 10 mg DAILY PRN [place] CONSTIPATION; Start 12/06/16 at 09 :30 Pantoprazole (Protonix Iv) 40 mg DAILY@06 IV Last administered on 12/07/16t 05 :41; Admin Dose 40 MG; Start 12/07/16 at 06:00 Albuterol/ Ipratropium (Duoneb) 3 ml Q4 PRN HHN dyspnea; Start 12/06/16 at 09: 30 TIFFANIE TILLMAN Dec 07, 2016 13:48
[2016-12-07] MEDS ORDERED: DIGOXIN 500 MCG INJ IV ONE (15:30)
--- NOTE | 2016-12-07 17:11 | CONS ---
Date/Time of Note Date/Time of Note DATE: 12/07/16 TIME: 17:06 Assessment/Plan Assessment/Plan Additional Assessment/Plan Acute CVA Recurrent AFIB with RVR HLP HTN continue rate control with IV dig and Iv b-estefani as pateint NPO po meds on hold rx Eliquis in 1-2 weeks as per neurology will review echo [place] family Consultation Date/Type/Reason Admit Date/Time Hx of Present Illness Patient is a 71-year-old [place] Islander speaking female brought in by her son after he was called to her house by other family members due to the patient being noted to have increased respiratory effort. The patient was noted to not be speaking or answering questions. The patient states that she has not spoken since yesterday morning. History is limited due to patient being aphasic, as well as language barrier and son being poor historian. The son states that the patient does not take any medication, but he does not know what medical condition she has. The patient currently smokes. Upon arrival the patient was diagonsed wiht an actue CVA and had evidecne of afib with rvr and therefore, we consulted to evaluate her from the cardiac standpoint Social History Smoking Status: Current every day smoker Drug Use: none Exam/Review of Systems Vital Signs Vitals Vital Signs Date Time Temp Pulse Resp B/P Pulse Ox O2 Delivery O2 Flow Rate FiO2 12/07/16 16:00 108 12/07/16 15:59 16 119/79 Nasal Cannula 2.0 12/07/16 12:04 98.8 97 Results Result Diagram: 12/06/16 0717 12/07/16 0730 Results 24 hrs Laboratory Tests Test 12/07/16 07:30 Sodium Level 140 Potassium Level 4.0 Chloride Level 110 Carbon Dioxide Level 25 Anion Gap 9 Blood Urea Nitrogen 20 Creatinine 1.05 H Glucose Level 88 # Hemoglobin A1c 5.2 Calcium Level 9.3 Phosphorus Level 4.2 Magnesium Level 1.7 Total Bilirubin 1.9 H Direct Bilirubin 0.00 Indirect Bilirubin 1.9 H Aspartate Amino Transf (AST/SGOT) 20 Alanine Aminotransferase (ALT/SGPT) 23 Alkaline Phosphatase 95 Total Protein 7.3 Albumin 3.7 Globulin 3.60 H Albumin/Globulin Ratio 1.02 Triglycerides Level 106 Cholesterol Level 211 H LDL Cholesterol, Calculated 154 HDL Cholesterol 36 Cholesterol/HDL Ratio 5.8 Thyroid Stimulating Hormone (TSH) 0.510 Free Thyroxine Index 3.88 Thyroxine (T4) 11.2 H Triiodothyronine (T3) Uptake 34.6 Medications Medications Current Medications Acetaminophen (Tylenol Tab) 650 mg Q6H PRN PO PAIN LEVEL 1-3 OR FEVER; Start 12/06/16 at 09:30 Amiodarone HCl (Cordarone) 200 mg BID PO ; Start 12/06/16 at 21:00 Nicotine (Nicoderm 7 Mg/ 24 Hr) 1 patch DAILY TRANSDERM ; Start 12/07/16 at 09: 00 Atorvastatin Calcium (Lipitor) 80 mg QHS PO ; Start 12/06/16 at 21:00 Aspirin 81 mg 81 mg DAILY PO ; Start 12/07/16 at 09:00 Sodium Chloride (NS) 1,000 ml @ 60 mls/hr [id number] IV Last administered on 12/06t 10:07; Admin Dose 60 MLS/HR; Start 12/06/16 at 09:12 Ondansetron HCl (Zofran Inj) 4 mg Q6H PRN IV NAUSEA AND/OR VOMITING; Start 12/06/16 at 09:30 Acetaminophen (Tylenol Supp) 650 mg Q6H PRN [place] PAIN LEVEL 1-3 OR FEVER; Start 12/06/16 at 09:30 Acetaminophen/ Hydrocodone Bitart ([place] (5/325)) 1 tab Q6H PRN PO MODERATE PAIN LEVEL 4-6; Start 12/06/16 at 09:30 Acetaminophen/ Hydrocodone Bitart ([place] (5/325)) 2 tab Q6H PRN PO SEVERE PAIN LEVEL 7-10; Start 12/06/16 at 09:30 Morphine Sulfate (morphine) 2 mg Q4H PRN IV SEVERE PAIN LEVEL 7-10; Start 12/06 at 09:30 Docusate Sodium (Colace) 100 mg Q12H PRN PO CONSTIPATION; Start 12/06/16 at 09: 30 Magnesium Hydroxide (Milk Of Mag) 30 ml DAILY PRN PO CONSTIPATION; Start at 09:30 Bisacodyl (Dulcolax Supp) 10 mg DAILY PRN [place] CONSTIPATION; Start 12/06/16 at 09 :30 Albuterol/ Ipratropium (Duoneb) 3 ml Q4 PRN HHN dyspnea; Start 10/9/17 at 09: 30 Metoprolol Tartrate (Lopressor) 5 mg Q12 IV ; Start 12/07/16 at 21:00 Famotidine (Pepcid Iv) 20 mg DAILY IV ; Start 12/08/16 at 09:00 REEMA JOHNSON MD Dec 07, 2016 17:11
[2016-12-07] MEDS: ATORVASTATIN 80 MG TAB PO SCH (21:00)
[2016-12-07] MEDS ORDERED: METOPROLOL 25 MG TAB PO SCH (21:00)
--- NOTE | 2016-12-07 21:55 | CONS ---
Date/Time of Note Date/Time of Note DATE: 12/07/16 TIME: 21:51 Consult Date/Type/Reason Admit Date/Time Dec 06, 2016 at 09:02 Initial Consult Date Subjective No acute events Objective Vital Signs Date Time Temp Pulse Resp B/P Pulse Ox O2 Delivery O2 Flow Rate FiO2 12/07/16 20:42 98.1 106 19 114/70 96 12/07/16 15:59 Nasal Cannula 2.0 Results/Medications Result Diagram: 12/06/1617 12/07/16 0730 Results 24 hrs Laboratory Tests Test 12/07/16 07:30 Sodium Level 140 Potassium Level 4.0 Chloride Level 110 Carbon Dioxide Level 25 Anion Gap 9 Blood Urea Nitrogen 20 Creatinine 1.05 H Glucose Level 88 # Hemoglobin A1c 5.2 Calcium Level 9.3 Phosphorus Level 4.2 Magnesium Level 1.7 Total Bilirubin 1.9 H Direct Bilirubin 0.00 Indirect Bilirubin 1.9 H Aspartate Amino Transf (AST/SGOT) 20 Alanine Aminotransferase (ALT/SGPT) 23 Alkaline Phosphatase 95 Total Protein 7.3 Albumin 3.7 Globulin 3.60 H Albumin/Globulin Ratio 1.02 Triglycerides Level 106 Cholesterol Level 211 H LDL Cholesterol, Calculated 154 HDL Cholesterol 36 Cholesterol/HDL Ratio 5.8 Thyroid Stimulating Hormone (TSH) 0.510 Free Thyroxine Index 3.88 Thyroxine (T4) 11.2 H Triiodothyronine (T3) Uptake 34.6 Medications Current Medications Acetaminophen (Tylenol Tab) 650 mg Q6H PRN PO PAIN LEVEL 1-3 OR FEVER; Start 12/06/16 at 09:30 Amiodarone HCl (Cordarone) 200 mg BID PO ; Start 12/06/16 at 21:00 Nicotine (Nicoderm 7 Mg/ 24 Hr) 1 patch DAILY TRANSDERM ; Start 12/07/16 at 09: 00 Atorvastatin Calcium (Lipitor) 80 mg QHS PO ; Start 12/06/16 at 21:00 Aspirin 81 mg 81 mg DAILY PO ; Start 12/07/16 at 09:00 Sodium Chloride (NS) 1,000 ml @ 60 mls/hr [id number] IV Last administered on 12/06t 10:07; Admin Dose 60 MLS/HR; Start 12/06/16 at 09:12 Ondansetron HCl (Zofran Inj) 4 mg Q6H PRN IV NAUSEA AND/OR VOMITING; Start 12/06/16 at 09:30 Acetaminophen (Tylenol Supp) 650 mg Q6H PRN [place] PAIN LEVEL 1-3 OR FEVER; Start 12/06/16 at 09:30 Acetaminophen/ Hydrocodone Bitart ([place] (5/325)) 1 tab Q6H PRN PO MODERATE PAIN LEVEL 4-6; Start 12/06/16 at 09:30 Acetaminophen/ Hydrocodone Bitart ([place] (5/325)) 2 tab Q6H PRN PO SEVERE PAIN LEVEL 7-10; Start 12/06/16 at 09:30 Morphine Sulfate (morphine) 2 mg Q4H PRN IV SEVERE PAIN LEVEL 7-10; Start 12/06 at 09:30 Docusate Sodium (Colace) 100 mg Q12H PRN PO CONSTIPATION; Start 12/06/16 at 09: 30 Magnesium Hydroxide (Milk Of Mag) 30 ml DAILY PRN PO CONSTIPATION; Start at 09:30 Bisacodyl (Dulcolax Supp) 10 mg DAILY PRN [place] CONSTIPATION; Start 12/06/16 at 09 :30 Albuterol/ Ipratropium (Duoneb) 3 ml Q4 PRN HHN dyspnea; Start 12/06/16 at 09: 30 Metoprolol Tartrate (Lopressor) 5 mg Q12 IV ; Start 12/07/16 at 21:00 Famotidine (Pepcid Iv) 20 mg DAILY IV ; Start 12/08/16 at 09:00 Assessment/Plan Chief Complaint/Hosp Course NEUROLOGIC: She is awake , does not follow verbal commands, does not speak, follows commands with visual prompting only. Normal response to visual threat bilaterally. Pupils reactive from 3 to 2 mm bilaterally. Extraocular movements intact without nystagmus. Symmetrical face. Preserved facial strength. Corneal reflexes present bilaterally. Motor strength examination seems to be preserved. The patient moves all extremities spontaneously and to minimal noxious stimulation. Deep tendon reflexes 2+ upper extremities, absent in lower extremities. No definite response to plantar stimulation bilaterally. Coordination is preserved when she is reaching for objects. No dysmetria or tremor. IMPRESSION: Acute stroke with aphasia, left MCA territory distribution. A late subacute versus chronic right CARBON PAPER INTERLEAFER territory stroke. Patient was on anticoagulation, but not sure about compliance. Given the relatively large area for stroke, I would hold anticoagulation until 1 or 2 weeks after acute stroke to decrease chance of hemorrhagic transformation. Will continue aspirin by now. Will continue high dose statin. Keep normotensive, euglycemic. Continue PT, speech therapy Problems: MARY CABELLO MD Dec 07, 2016 21:55
[2016-12-07] MEDS: METOPROLOL 5 MG INJ IV SCH (22:08)
[2016-12-08] VITALS (11 sets, daily range): BP systolic 121–142; BP diastolic 78–98; PULSE 60–120; RESP 16–20
[2016-12-08] MEDS: ASPIRIN 81 MG TAB PO SCH (08:43)
[2016-12-08] MEDS: NICOTINE (7 MG/24 HR) PATCH TRANSDERM SCH (08:43)
[2016-12-08] MEDS: AMIODARONE 200 MG TAB PO SCH ×2 (08:43→21:00)
[2016-12-08] MEDS: FAMOTIDINE 20 MG INJ IV SCH (08:57)
[2016-12-08] MEDS: SOD CHLORIDE 0.9% 1,000 ML IV SCH (08:57)
[2016-12-08] MEDS: METOPROLOL 5 MG INJ IV SCH ×2 (08:58→21:00)
--- NOTE | 2016-12-08 13:03 | PN ---
Date/Time of Note Date/Time of Note DATE: 12/08/16 TIME: 13:00 Assessment/Plan VTE Prophylaxis VTE Prophylaxis Intervention: SCD's Lines/Catheters IV Catheter Type (from Nrs): Peripheral IV Assessment/Plan Chief Complaint/Hosp Course Impression and plan 1. Acute CVA. Patient did have CT scan showing acute infarct in the left frontal lobe posteriorly/parietal lobe. Additionally MRI of the brain was ordered but did show to have recent subacute left MCA territory infarct but no acute parenchymal hemorrhage or midline shift. There is also seen late subacute to chronic right FURNITURE AND BEDDING INSPECTOR territory infarct and minimal chronic microvascular disease. Patient to be placed on antiplatelet therapy as well as statin medication. Continue with neurologist recommendations. PT/OT/ST is following. 2. Reported history of cardiac arrhythmia. Echocardiogram with preserved ejection fraction. 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 fib with RVR. Continue medication regimen per refinery operator coking. Monitor for stability 3. Suspect dyslipidemia continue on statin medication. 4. Obesity. Weight reduction to be advised. 5. History of nicotine abuse. Cessation was advised. Disposition and plan: Noted to have failed swallow eval yesterday. Follow-up with ST for Regimen. Patient family requesting social media developer. Will get consultation. Follow-up with patient's family for discharge disposition. Monitor for stability of heart rate. DC when medically stable and cleared by consultants Discussed plan of care with Dr. Atkinson Problems: Subjective 24 Hr Interval Summary Free Text/Dictation Family at bedside. No reports of headache. Still reportedly weak bilateral lower extremities Exam/Review of Systems Vital Signs Vitals Vital Signs Date Time Temp Pulse Resp B/P Pulse Ox O2 Delivery O2 Flow Rate FiO2 12/08/16 12:41 99 12/08/16 11:32 97.7 17 126/88 96 12/08/16 08:00 Room Air 12/07/16 15:59 2.0 Intake and Output 12/07/16 12/07/16 12/08/16 15:00 23:00 07:00 Intake Total 0 ml 720 ml Balance 0 ml 720 ml Exam Constitutional: alert, oriented, other Head: normocephalic Respiratory: clear to auscultation, normal air movement Cardiovascular: other afib with rvr to sinus Gastrointestinal: non-tender, Extremities: normal pulses Neurological: other with noted weakness BLE. able to form some words but unable to put together sentences, unchanged Results Result Diagram: 12/06/1671612/07/16 0730 Medications Medications Current Medications Acetaminophen (Tylenol Tab) 650 mg Q6H PRN PO PAIN LEVEL 1-3 OR FEVER; Start 12/06/16 at 09:30 Amiodarone HCl (Cordarone) 200 mg BID PO ; Start 12/06/16 at 21:00 Nicotine (Nicoderm 7 Mg/ 24 Hr) 1 patch DAILY TRANSDERM ; Start 12/07/16 at 09: 00 Atorvastatin Calcium (Lipitor) 80 mg QHS PO ; Start 12/06/16 at 21:00 Aspirin 81 mg 81 mg DAILY PO ; Start 12/07/16 at 09:00 Sodium Chloride (NS) 1,000 ml @ 60 mls/hr [id number] IV Last administered on t 08:57; Admin Dose 60 MLS/HR; Start 12/06/16 at 09:12 Ondansetron HCl (Zofran Inj) 4 mg Q6H PRN IV NAUSEA AND/OR VOMITING; Start 12/06/16 at 09:30 Acetaminophen (Tylenol Supp) 650 mg Q6H PRN [place] PAIN LEVEL 1-3 OR FEVER; Start 12/06/16 at 09:30 Acetaminophen/ Hydrocodone Bitart ([place] (5/325)) 1 tab Q6H PRN PO MODERATE PAIN LEVEL 4-6; Start 12/06/16 at 09:30 Acetaminophen/ Hydrocodone Bitart ([place] (5/325)) 2 tab Q6H PRN PO SEVERE PAIN LEVEL 7-10; Start 12/06/16 at 09:30 Morphine Sulfate (morphine) 2 mg Q4H PRN IV SEVERE PAIN LEVEL 7-10; Start 12/06 at 09:30 Docusate Sodium (Colace) 100 mg Q12H PRN PO CONSTIPATION; Start 12/06/16 at 09: 30 Magnesium Hydroxide (Milk Of Mag) 30 ml DAILY PRN PO CONSTIPATION; Start at 09:30 Bisacodyl (Dulcolax Supp) 10 mg DAILY PRN [place] CONSTIPATION; Start 12/06/16 at 09 :30 Albuterol/ Ipratropium (Duoneb) 3 ml Q4 PRN HHN dyspnea; Start 12/06/16 at 09: 30 Metoprolol Tartrate (Lopressor) 5 mg Q12 IV Last administered on 12/08/16 08: 58; Admin Dose 5 MG; Start 12/07/16 at 21:00 Famotidine (Pepcid Iv) 20 mg DAILY IV Last administered on 12/08/16 08:57; Admin Dose 20 MG; Start 12/08/16 at 09:00 TIFFANIE TILLMAN Dec 08, 2016 13:03
[2016-12-08] MEDS: ATORVASTATIN 80 MG TAB PO SCH (21:00)
[2016-12-09] VITALS (15 sets, daily range): BP systolic 94–140; BP diastolic 57–88; PULSE 46–104; RESP 16–20
[2016-12-09] MEDS: SOD CHLORIDE 0.9% 1,000 ML IV SCH ×2 (06:07→23:41)
[2016-12-09] MEDS: ASPIRIN 81 MG TAB PO SCH (08:33)
[2016-12-09] MEDS: AMIODARONE 200 MG TAB PO SCH ×2 (08:33→21:00)
[2016-12-09] MEDS: NICOTINE (7 MG/24 HR) PATCH TRANSDERM SCH (08:33)
[2016-12-09] MEDS: METOPROLOL 5 MG INJ IV SCH ×2 (08:42→21:00)
[2016-12-09] MEDS: FAMOTIDINE 20 MG INJ IV SCH (08:42)
[2016-12-09 13:11] LABS: BASOPHILS % 0.2 % (0.0-2.0); EOSINOPHILS # 0.1 10^3/ul (0.0-0.5); EOSINOPHILS % 0.7 % (0.0-7.0); HEMATOCRIT 37.6 % (37.0-47.0); LYMPHOCYTES # 1.4 10^3/ul (0.8-2.9); LYMPHOCYTES % 16.4 % (15.0-51.0); MEAN CORPUSCULAR HEMOGLOBIN 30.5 pg (29.0-33.0); MEAN CORPUSCULAR HGB CONC 34.6 g/dl (32.0-37.0); MEAN CORPUSCULAR VOLUME 88.3 fl (82.0-101.0); MEAN PLATELET VOLUME 10.2 fl (7.4-10.4); MONOCYTE # 0.5 10^3/ul (0.3-0.9); MONOCYTES % 6.5 % (0.0-11.0); NEUTROPHIL # 6.3 10^3/ul (1.6-7.5); NEUTROPHILS % 75.8 % (39.0-77.0); PLATELET COUNT 219 10^3/UL (140-415); RED BLOOD COUNT 4.26 10^6/ul (4.20-5.40); RED CELL DISTRIBUTION WIDTH 11.7 % (11.5-14.5); WHITE BLOOD COUNT 8.3 10^3/ul (4.8-10.8)
[2016-12-09 13:30] LABS: POTASSIUM 3.8 mmol/L (3.5-5.1)
--- NOTE | 2016-12-09 19:55 | PN ---
Date/Time of Note Date/Time of Note DATE: 12/09/16 TIME: 19:54 Assessment/Plan VTE Prophylaxis VTE Prophylaxis Intervention: SCD's Lines/Catheters [facility] Per[facility] IV Assessment/Plan Chief Complaint/Hosp Course Patient is a 71-year-old Bahraini speaking female brought in by her son after he was called to her house by other family members due to the patient being noted to have increased respiratory effort. The patient was noted to not be speaking or answering questions. The patient states that she has not spoken since yesterday morning. History is limited due to patient being aphasic, as well as language barrier and son being poor historian. The son states that the patient does not take any medication, but he does not know what medical condition she has. The patient currently smokes. Upon arrival the patient was diagonsed wiht an actue CVA and had evidecne of afib with rvr and therefore, we consulted to evaluate her from the cardiac standpoint Problems: Assessment/Plan Acute CVA Recurrent AFIB with RVR HLP HTN continue rate control with IV dig and Iv b-estefani as pateint NPO po meds on hold rx Eliquis in 1-2 weeks as per neurology sw family Subjective 24 Hr Interval Summary Free Text/Dictation The aptient wtih no ahgne Exam/Review of Systems Vital Signs Vitals Vital Signs Date Time Temp Pulse Resp B/P Pulse Ox O2 Delivery O2 Flow Rate FiO2 12/09/16 19:44 98.1 65 19 94/57 96 12/09/16 15:36 Room Air 12/07/16 15:59 2.0 Intake and Output 12/08/16 12/08/16 12/09/16 15:00 23:00 07:00 Intake Total 720 ml 1000 ml Balance 720 ml 1000 ml Results Result Diagram: 12/09/16 1253 12/09/16 1253 Results 24 hrs Laboratory Tests Test 12/09/16 12:53 White Blood Count 8.3 Red Blood Count 4.26 Hemoglobin 13.0 Hematocrit 37.6 Mean Corpuscular Volume 88.3 Mean Corpuscular Hemoglobin 30.5 Mean Corpuscular Hemoglobin Concent 34.6 Red Cell Distribution Width 11.7 Platelet Count 219 Mean Platelet Volume 10.2 Neutrophils % 75.8 Lymphocytes % 16.4 Monocytes % 6.5 Eosinophils % 0.7 Basophils % 0.2 Nucleated Red Blood Cells % 0.0 Neutrophils # 6.3 Lymphocytes # 1.4 Monocytes # 0.5 Eosinophils # 0.1 Basophils # 0.0 Nucleated Red Blood Cells # 0.0 Sodium Level 139 Potassium Level 3.8 Chloride Level 112 H Carbon Dioxide Level 24 Anion Gap 7 L Blood Urea Nitrogen 26 H Creatinine 1.00 Glucose Level 80 Calcium Level 9.0 Medications Medications Current Medications Acetaminophen (Tylenol Tab) 650 mg Q6H PRN PO PAIN LEVEL 1-3 OR FEVER; Start 12/06/16 at 09:30 Amiodarone HCl (Cordarone) 200 mg BID PO ; Start 12/06/16 at 21:00 Nicotine (Nicoderm 7 Mg/ 24 Hr) 1 patch DAILY TRANSDERM ; Start 12/07/16 at 09: 00 Atorvastatin Calcium (Lipitor) 80 mg QHS PO ; Start 12/06/16 at 21:00 Aspirin 81 mg 81 mg DAILY PO ; Start 12/07/16 at 09:00 Sodium Chloride (NS) 1,000 ml @ 60 mls/hr [id number] IV Last administered on t 06:07; Admin Dose 60 MLS/HR; Start 12/06/16 at 09:12 Ondansetron HCl (Zofran Inj) 4 mg Q6H PRN IV NAUSEA AND/OR VOMITING; Start 12/06/16 at 09:30 Acetaminophen (Tylenol Supp) 650 mg Q6H PRN [place] PAIN LEVEL 1-3 OR FEVER; Start 12/06/16 at 09:30 Acetaminophen/ Hydrocodone Bitart ([place] (5/325)) 1 tab Q6H PRN PO MODERATE PAIN LEVEL 4-6; Start 12/06/16 at 09:30 Acetaminophen/ Hydrocodone Bitart ([place] (5/325)) 2 tab Q6H PRN PO SEVERE PAIN LEVEL 7-10; Start 12/06/16 at 09:30 Morphine Sulfate (morphine) 2 mg Q4H PRN IV SEVERE PAIN LEVEL 7-10; Start 12/06 at 09:30 Docusate Sodium (Colace) 100 mg Q12H PRN PO CONSTIPATION; Start 12/06/16 at 09: 30 Magnesium Hydroxide (Milk Of Mag) 30 ml DAILY PRN PO CONSTIPATION; Start at 09:30 Bisacodyl (Dulcolax Supp) 10 mg DAILY PRN [place] CONSTIPATION; Start 12/06/16 at 09 :30 Albuterol/ Ipratropium (Duoneb) 3 ml Q4 PRN HHN dyspnea; Start 12/06/16 at 09: 30 Metoprolol Tartrate (Lopressor) 5 mg Q12 IV Last administered on 12/09/16 08: 42; Admin Dose 5 MG; Start 12/07/16 at 21:00 Famotidine (Pepcid Iv) 20 mg DAILY IV Last administered on 12/09/16 08:42; Admin Dose 20 MG; Start 12/08/16 at 09:00 REEMA JOHNSON MD Dec 09, 2016 19:55
[2016-12-09] MEDS: ATORVASTATIN 80 MG TAB PO SCH (21:06)
--- NOTE | 2016-12-09 22:12 | PN ---
Date/Time of Note Date/Time of Note DATE: 12/09/16 TIME: 22:10 Assessment/Plan VTE Prophylaxis VTE Prophylaxis Intervention: SCD's Lines/Catheters IV C[facility] Type (from [facility]): Peripheral IV Assessment/Plan Chief Complaint/Hosp Course Impression and plan 1. Acute CVA. Patient did have CT scan showing acute infarct in the left frontal lobe posteriorly/parietal lobe. Additionally MRI of the brain was ordered but did show to have recent subacute left MCA territory infarct but no acute parenchymal hemorrhage or midline shift. There is also seen late subacute to chronic right SPARE PERSON territory infarct and minimal chronic microvascular disease. Continue antiplatelet therapy as well as statin medication. Continue with neurologist recommendations. PT/OT/ST is following. 2. Reported history of cardiac arrhythmia. Echocardiogram with preserved ejection fraction. Anodic Operator following for reported A. fib with RVR. Continue telemetry monitoring. Show with labile heart rate. Continue optimization of cardiovascular medications. Monitor for clinical improvement. 3. Suspect dyslipidemia continue on statin medication. 4. Obesity. Weight reduction to be advised. 5. History of nicotine abuse. Cessation was advised. Disposition and plan: Discussed with family, patient may benefit from acute rehab unit placement. Patient's family to decide her disposition. Await for improvement of A. fib. Follow-up with leadlighter. Discussed plan of care with Dr. Atkinson Problems: Subjective 24 Hr Interval Summary Free Text/Dictation Alert. Reportedly working well with physical therapy today. Discussed with family apparently patient is slightly more confused at present. Exam/Review of Systems Vital Signs Vitals Vital Signs Date Time Temp Pulse Resp B/P Pulse Ox O2 Delivery O2 Flow Rate FiO2 12/09/16 20:25 56 12/09/16 19:44 98.1 19 94/57 96 12/09/16 15:36 Room Air 12/07/16 15:59 2.0 Intake and Output 12/08/16 12/08/16 12/09/16 15:00 23:00 07:00 Intake Total 720 ml 1000 ml Balance 720 ml 1000 ml Exam Constitutional: alert Psych: nl mood/affect, no complaints Head: normocephalic Neck: supple Respiratory: clear to auscultation Cardiovascular: other (Regular rhythm) Gastrointestinal: non-tender, soft Musculoskeletal: No nl gait and stance, No swelling Neurological: No TYRE FINISHER AND EXAMINER II-XII intact, No nl speech Results Result Diagram: 12/09/16 1253 12/09/16 1253 Results 24 hrs Laboratory Tests Test 12/09/16 12:53 White Blood Count 8.3 Red Blood Count 4.26 Hemoglobin 13.0 Hematocrit 37.6 Mean Corpuscular Volume 88.3 Mean Corpuscular Hemoglobin 30.5 Mean Corpuscular Hemoglobin Concent 34.6 Red Cell Distribution Width 11.7 Platelet Count 219 Mean Platelet Volume 10.2 Neutrophils % 75.8 Lymphocytes % 16.4 Monocytes % 6.5 Eosinophils % 0.7 Basophils % 0.2 Nucleated Red Blood Cells % 0.0 Neutrophils # 6.3 Lymphocytes # 1.4 Monocytes # 0.5 Eosinophils # 0.1 Basophils # 0.0 Nucleated Red Blood Cells # 0.0 Sodium Level 139 Potassium Level 3.8 Chloride Level 112 H Carbon Dioxide Level 24 Anion Gap 7 L Blood Urea Nitrogen 26 H Creatinine 1.00 Glucose Level 80 Calcium Level 9.0 Medications Medications Current Medications Acetaminophen (Tylenol Tab) 650 mg Q6H PRN PO PAIN LEVEL 1-3 OR FEVER; Start 12/06/16 at 09:30 Amiodarone HCl (Cordarone) 200 mg BID PO ; Start 12/06/16 at 21:00 Nicotine (Nicoderm 7 Mg/ 24 Hr) 1 patch DAILY TRANSDERM ; Start 12/07/16 at 09: 00 Atorvastatin Calcium (Lipitor) 80 mg QHS PO Last administered on 12/09/16 21: 06; Admin Dose 80 MG; Start 12/06/16 at 21:00 Aspirin 81 mg 81 mg DAILY PO ; Start 12/07/16 at 09:00 Sodium Chloride (NS) 1,000 ml @ 60 mls/hr [id number] IV Last administered on 06:07; Admin Dose 60 MLS/HR; Start 12/06/16 at 09:12 Ondansetron HCl (Zofran Inj) 4 mg Q6H PRN IV NAUSEA AND/OR VOMITING; Start 12/06/16 at 09:30 Acetaminophen (Tylenol Supp) 650 mg Q6H PRN [place] PAIN LEVEL 1-3 OR FEVER; Start 12/06/16 at 09:30 Acetaminophen/ Hydrocodone Bitart ([place] (5/325)) 1 tab Q6H PRN PO MODERATE PAIN LEVEL 4-6; Start 12/06/16 at 09:30 Acetaminophen/ Hydrocodone Bitart ([place] (5/325)) 2 tab Q6H PRN PO SEVERE PAIN LEVEL 7-10; Start 12/06/16 at 09:30 Morphine Sulfate (morphine) 2 mg Q4H PRN IV SEVERE PAIN LEVEL 7-10; Start 12/06 at 09:30 Docusate Sodium (Colace) 100 mg Q12H PRN PO CONSTIPATION; Start 12/06/16 at 09: 30 Magnesium Hydroxide (Milk Of Mag) 30 ml DAILY PRN PO CONSTIPATION; Start at 09:30 Bisacodyl (Dulcolax Supp) 10 mg DAILY PRN [place] CONSTIPATION; Start 12/06/16 at 09 :30 Albuterol/ Ipratropium (Duoneb) 3 ml Q4 PRN HHN dyspnea; Start 12/06/16 at 09: 30 Metoprolol Tartrate (Lopressor) 5 mg Q12 IV Last administered on 12/09/16 08: 42; Admin Dose 5 MG; Start 12/07/16 at 21:00 Famotidine (Pepcid Iv) 20 mg DAILY IV Last administered on 12/09/16 08:42; Admin Dose 20 MG; Start 12/08/16 at 09:00 TIFFANIE TILLMAN Dec 09, 2016 22:12
[2016-12-10] VITALS (11 sets, daily range): BP systolic 107–148; BP diastolic 65–71; PULSE 40–65; RESP 9–19
[2016-12-10 06:57] LABS: BASOPHILS % 0.1 % (0.0-2.0); EOSINOPHILS # 0.1 10^3/ul (0.0-0.5); HEMATOCRIT 33.6 % (37.0-47.0); HEMOGLOBIN 11.7 g/dl (12.0-16.0); LYMPHOCYTES # 1.5 10^3/ul (0.8-2.9); LYMPHOCYTES % 20.4 % (15.0-51.0); MEAN CORPUSCULAR HEMOGLOBIN 30.8 pg (29.0-33.0); MEAN CORPUSCULAR HGB CONC 34.8 g/dl (32.0-37.0); MEAN CORPUSCULAR VOLUME 88.4 fl (82.0-101.0); MEAN PLATELET VOLUME 10.5 fl (7.4-10.4); MONOCYTE # 0.7 10^3/ul (0.3-0.9); MONOCYTES % 9.1 % (0.0-11.0); NEUTROPHIL # 4.9 10^3/ul (1.6-7.5); NEUTROPHILS % 69.1 % (39.0-77.0); PLATELET COUNT 200 10^3/UL (140-415); RED CELL DISTRIBUTION WIDTH 11.9 % (11.5-14.5); WHITE BLOOD COUNT 7.2 10^3/ul (4.8-10.8)
[2016-12-10 07:29] LABS: CALCIUM 8.6 mg/dl (8.4-10.2); CREATININE 1.1 mg/dl (0.44-1.00); POTASSIUM 3.6 mmol/L (3.5-5.1)
[2016-12-10] MEDS: AMIODARONE 200 MG TAB PO SCH ×2 (09:00→21:00)
[2016-12-10] MEDS: FAMOTIDINE 20 MG INJ IV SCH (09:00)
[2016-12-10] MEDS: METOPROLOL 5 MG INJ IV SCH ×2 (09:00→21:00)
[2016-12-10] MEDS: ASPIRIN 81 MG TAB PO SCH (09:00)
[2016-12-10] MEDS: NICOTINE (7 MG/24 HR) PATCH TRANSDERM SCH (09:00)
--- NOTE | 2016-12-10 16:30 | PN ---
Date/Time of Note Date/Time of Note DATE: 12/10/16 TIME: 16:28 Assessment/Plan VTE Prophylaxis VTE Prophylaxis Intervention: heparin, SCD's Lines/Catheters IV Catheter Type (from [facility]): Peripheral IV Assessment/Plan Assessment/Plan 1. Acute CVA. Patient did have CT scan showing acute infarct in the left frontal lobe posteriorly/parietal lobe. Additionally MRI of the brain was ordered but did show to have recent subacute left MCA territory infarct but no acute parenchymal hemorrhage or midline shift. There is also seen late subacute to chronic right INDUSTRIAL SEAMSTRESS territory infarct and minimal chronic microvascular disease. Continue antiplatelet therapy as well as statin medication. Continue with neurologist recommendations. tolerating Pureed diet 2. Reported history of cardiac arrhythmia. Echocardiogram with preserved ejection fraction. 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 fib with RVR. Continue telemetry monitoring. Show with labile heart rate. Continue optimization of cardiovascular medications. Monitor for clinical improvement. 3. Suspect dyslipidemia continue on statin medication. 4. Obesity. Weight reduction to be advised. 5. History of nicotine abuse. Cessation was advised. Disposition and plan: acute rehab evaluation, pending heparin for DVT prophylaxis Subjective 24 Hr Interval Summary Free Text/Dictation HR runs on low side, pt is asymptomatic, BP stable, afebrile, pt wants to eat more food, currently on pureed diet Exam/Review of Systems Vital Signs Vitals Vital Signs Date Time Temp Pulse Resp B/P Pulse Ox O2 Delivery O2 Flow Rate FiO2 12/10/16 16:18 59 12/10/16 11:43 98.0 17 147/65 98 12/09/16 15:36 Room Air 12/07/16 15:59 2.0 Intake and Output 12/09/16 12/09/16 12/10/16 15:00 23:00 07:00 Intake Total 820 ml 460 ml Balance 820 ml 460 ml Exam Constitutional: alert Psych: nl mood/affect, no complaints Head: normocephalic Neck: supple Respiratory: clear to auscultation Cardiovascular: other (Regular rhythm) Gastrointestinal: non-tender, soft Musculoskeletal: No nl gait and stance, No swelling Neurological: No IRRIGATION PUMP INSTALLER II-XII intact, No nl speech Results Result Diagram: 12/10/16 0615 12/10/16 0615 Results 24 hrs Laboratory Tests Test 12/10/16 06:15 White Blood Count 7.2 Red Blood Count 3.80 L Hemoglobin 11.7 L Hematocrit 33.6 L Mean Corpuscular Volume 88.4 Mean Corpuscular Hemoglobin 30.8 Mean Corpuscular Hemoglobin Concent 34.8 Red Cell Distribution Width 11.9 Platelet Count 200 Mean Platelet Volume 10.5 H Neutrophils % 69.1 Lymphocytes % 20.4 Monocytes % 9.1 Eosinophils % 1.0 Basophils % 0.1 Nucleated Red Blood Cells % 0.0 Neutrophils # 4.9 Lymphocytes # 1.5 Monocytes # 0.7 Eosinophils # 0.1 Basophils # 0.0 Nucleated Red Blood Cells # 0.0 Sodium Level 144 Potassium Level 3.6 Chloride Level 113 H Carbon Dioxide Level 23 Anion Gap 12 Blood Urea Nitrogen 22 H Creatinine 1.10 H Glucose Level 83 Calcium Level 8.6 Medications Medications Current Medications Acetaminophen (Tylenol Tab) 650 mg Q6H PRN PO PAIN LEVEL 1-3 OR FEVER; Start 12/06/16 at 09:30 Amiodarone HCl (Cordarone) 200 mg BID PO ; Start 12/06/16 at 21:00 Nicotine (Nicoderm 7 Mg/ 24 Hr) 1 patch DAILY TRANSDERM Last administered on 09:00; Admin Dose 1 PATCH; Start 12/07/16 at 09:00 Atorvastatin Calcium (Lipitor) 80 mg QHS PO Last administered on 12/09/16 21: 06; Admin Dose 80 MG; Start 12/06/16 at 21:00 Aspirin (Aspirin) 81 mg DAILY PO Last administered on 12/10/16 09:00; Admin Dose 81 MG; Start 12/07/16 at 09:00 Ondansetron HCl (Zofran Inj) 4 mg Q6H PRN IV NAUSEA AND/OR VOMITING; Start 12/06/16 at 09:30 Acetaminophen (Tylenol Supp) 650 mg Q6H PRN [place] PAIN LEVEL 1-3 OR FEVER; Start 12/06/16 at 09:30 Acetaminophen/ Hydrocodone Bitart ([place] (5/325)) 1 tab Q6H PRN PO MODERATE PAIN LEVEL 4-6; Start 12/06/16 at 09:30 Acetaminophen/ Hydrocodone Bitart ([place] (5/325)) 2 tab Q6H PRN PO SEVERE PAIN LEVEL 7-10; Start 12/06/16 at 09:30 Morphine Sulfate (morphine) 2 mg Q4H PRN IV SEVERE PAIN LEVEL 7-10; Start 12/06 at 09:30 Docusate Sodium (Colace) 100 mg Q12H PRN PO CONSTIPATION; Start 12/06/16 at 09: 30 Magnesium Hydroxide (Milk Of Mag) 30 ml DAILY PRN PO CONSTIPATION; Start at 09:30 Bisacodyl (Dulcolax Supp) 10 mg DAILY PRN [place] CONSTIPATION; Start 12/06/16 at 09 :30 Albuterol/ Ipratropium (Duoneb) 3 ml Q4 PRN HHN dyspnea; Start 12/06/16 at 09: 30 Metoprolol Tartrate (Lopressor) 5 mg Q12 IV Last administered on 12/09/16 08: 42; Admin Dose 5 MG; Start 12/07/16 at 21:00 Famotidine (Pepcid Iv) 20 mg DAILY IV Last administered on 12/10/16 09:00; Admin Dose 20 MG; Start 12/08/16 at 09:00 OCTAVIO ANGELES MD Dec 10, 2016 16:30
--- NOTE | 2016-12-10 17:56 | RADRPT ---
PROCEDURE: XR Ankle. CLINICAL INDICATION: 71 years of age, female. Right ankle pain. TECHNIQUE: Three views of the right ankle. COMPARISON: None available. FINDINGS: No acute fracture or dislocation is identified. Normal alignment on this non-stressed view. Negative for significant soft tissue swelling.. Mild osteoarthritis at the ankle with small osteophytes. Well corticated ossicle in the heel pad is likely dystrophic. Linear calcification in the plantar fascia is likely dystrophic. There is a calci fied enthesophyte at the distal insertion of the Achilles tendon. IMPRESSION: Negative for evidence of acute fracture or dislocation of the right ankle. RPTAT: HCTS Physician Kathleen Date Time Electronically viewed and signed by Physician Kathleen on 12/10/2016 17:55 /
--- NOTE | 2016-12-10 18:02 | PN ---
Date/Time of Note Date/Time of Note DATE: 12/10/16 TIME: 18:01 Assessment/Plan VTE Prophylaxis VTE Prophylaxis Intervention: SCD's Lines/Catheters IV C[facility] Type (from [facility]): Peripheral IV Assessment/Plan Chief Complaint/Hosp Course Patient is a 71-year-old Liberian speaking female brought in by her son after he was called to her house by other family members due to the patient being noted to have increased respiratory effort. The patient was noted to not be speaking or answering questions. The patient states that she has not spoken since yesterday morning. History is limited due to patient being aphasic, as well as language barrier and son being poor historian. The son states that the patient does not take any medication, but he does not know what medical condition she has. The patient currently smokes. Upon arrival the patient was diagonsed wiht an actue CVA and had evidecne of afib with rvr and therefore, we consulted to evaluate her from the cardiac standpoint Problems: Assessment/Plan Acute CVA Recurrent AFIB with RVR HLP HTN - now in nsr po meds on hold rx Eliquis in 1-2 weeks as per neurology sw family Subjective 24 Hr Interval Summary Free Text/Dictation The -pateint with no change but now in nsr Exam/Review of Systems Vital Signs Vitals Vital Signs Date Time Temp Pulse Resp B/P Pulse Ox O2 Delivery O2 Flow Rate FiO2 12/10/16 16:18 59 12/10/16 11:43 98.0 17 147/65 98 12/09/16 15:36 Room Air 12/07/16 15:59 2.0 Intake and Output 12/09/16 12/09/16 12/10/16 15:00 23:00 07:00 Intake Total 820 ml 460 ml Balance 820 ml 460 ml Results Result Diagram: 12/10/16 0615 12/10/16 0615 Results 24 hrs Laboratory Tests Test 12/10/16 06:15 White Blood Count 7.2 Red Blood Count 3.80 L Hemoglobin 11.7 L Hematocrit 33.6 L Mean Corpuscular Volume 88.4 Mean Corpuscular Hemoglobin 30.8 Mean Corpuscular Hemoglobin Concent 34.8 Red Cell Distribution Width 11.9 Platelet Count 200 Mean Platelet Volume 10.5 H Neutrophils % 69.1 Lymphocytes % 20.4 Monocytes % 9.1 Eosinophils % 1.0 Basophils % 0.1 Nucleated Red Blood Cells % 0.0 Neutrophils # 4.9 Lymphocytes # 1.5 Monocytes # 0.7 Eosinophils # 0.1 Basophils # 0.0 Nucleated Red Blood Cells # 0.0 Sodium Level 144 Potassium Level 3.6 Chloride Level 113 H Carbon Dioxide Level 23 Anion Gap 12 Blood Urea Nitrogen 22 H Creatinine 1.10 H Glucose Level 83 Calcium Level 8.6 Medications Medications Current Medications Acetaminophen (Tylenol Tab) 650 mg Q6H PRN PO PAIN LEVEL 1-3 OR FEVER; Start 12/06/16 at 09:30 Amiodarone HCl (Cordarone) 200 mg BID PO ; Start 12/06/16 at 21:00 Nicotine (Nicoderm 7 Mg/ 24 Hr) 1 patch DAILY TRANSDERM Last administered on 09:00; Admin Dose 1 PATCH; Start 12/07/16 at 09:00 Atorvastatin Calcium (Lipitor) 80 mg QHS PO Last administered on 12/09/16 21: 06; Admin Dose 80 MG; Start 12/06/16 at 21:00 Aspirin (Aspirin) 81 mg DAILY PO Last administered on 12/10/16 09:00; Admin Dose 81 MG; Start 12/07/16 at 09:00 Ondansetron HCl (Zofran Inj) 4 mg Q6H PRN IV NAUSEA AND/OR VOMITING; Start 12/06/16 at 09:30 Acetaminophen (Tylenol Supp) 650 mg Q6H PRN [place] PAIN LEVEL 1-3 OR FEVER; Start 12/06/16 at 09:30 Acetaminophen/ Hydrocodone Bitart ([place] (5/325)) 1 tab Q6H PRN PO MODERATE PAIN LEVEL 4-6; Start 12/06/16 at 09:30 Acetaminophen/ Hydrocodone Bitart ([place] (5/325)) 2 tab Q6H PRN PO SEVERE PAIN LEVEL 7-10; Start 12/06/16 at 09:30 Morphine Sulfate (morphine) 2 mg Q4H PRN IV SEVERE PAIN LEVEL 7-10; Start 12/06 at 09:30 Docusate Sodium (Colace) 100 mg Q12H PRN PO CONSTIPATION; Start 12/06/16 at 09: 30 Magnesium Hydroxide (Milk Of Mag) 30 ml DAILY PRN PO CONSTIPATION; Start at 09:30 Bisacodyl (Dulcolax Supp) 10 mg DAILY PRN [place] CONSTIPATION; Start 12/06/16 at 09 :30 Albuterol/ Ipratropium (Duoneb) 3 ml Q4 PRN HHN dyspnea; Start 12/06/16 at 09: 30 Metoprolol Tartrate (Lopressor) 5 mg Q12 IV Last administered on 12/09/16t 08: 42; Admin Dose 5 MG; Start 12/07/16 at 21:00 Heparin Sodium (Porcine) (Heparin (5000 Units/0.5 ml)) 5,000 unit BID SC ; Start 12/10/16 at 21:00 Pantoprazole (Protonix Tab) 40 mg DAILY@06 PO ; Start 12/11/16 at 06:00 REEMA JOHNSON MD Dec 10, 2016 18:02
[2016-12-10] MEDS: ACETAMINOPHEN 325 MG TAB PO PRN (18:14)
[2016-12-10] MEDS: ATORVASTATIN 80 MG TAB PO SCH (21:04)
[2016-12-10] MEDS: HEPARIN 5,000 UNIT/0.5 ML VIAL SC SCH (21:24)
[2016-12-11] VITALS (14 sets, daily range): BP systolic 112–144; BP diastolic 74–88; PULSE 60–122; RESP 17–19
[2016-12-11] MEDS: AMIODARONE 200 MG TAB PO SCH ×3 (01:20→21:14)
[2016-12-11] MEDS: METOPROLOL 5 MG INJ IV SCH ×2 (02:39→08:46)
[2016-12-11] MEDS: PANTOPRAZOLE (EC) 40 MG TAB PO SCH (05:49)
[2016-12-11] MEDS: ASPIRIN 81 MG TAB PO SCH (08:43)
[2016-12-11] MEDS: NICOTINE (7 MG/24 HR) PATCH TRANSDERM SCH (08:44)
[2016-12-11] MEDS ORDERED: FAMOTIDINE 20 MG TAB PO SCH (09:00)
[2016-12-11] MEDS: HEPARIN 5,000 UNIT/0.5 ML VIAL SC SCH ×2 (09:12→21:16)
[2016-12-11] MEDS ORDERED: PANT40TA4 PO (11:20)
[2016-12-11] MEDS ORDERED: ASPI81TA3 PO (11:20)
[2016-12-11] MEDS ORDERED: ATOR80TA75 PO (11:20)
--- NOTE | 2016-12-11 11:22 | PDOCDIS ---
Discharge Instructions DIAGNOSIS Discharge Diagnosis 1. Acute CVA. 2. Reported history of cardiac arrhythmia. 3. Suspect dyslipidemia 4. Obesity 5. History of nicotine abuse. CONDITION Patient Condition: Stable HOME CARE INSTRUCTIONS: Diet Instructions: Low Fat /CholesterolSpecial Diet: pureed FOLLOW UP/APPOINTMENTS Follow-up Plan 1. Follow up with Dr. Kyle Fontenot in one week 2. Follow up with Dr. Mayur Huerta in 1-2 weeks OTHER ORDERS: Other Orders: 1. Have your medications refilled per your primary care physician 2. Follow up with your taxicab starter for instructions on when to resume TIFFANIE Smith Dec 11, 2016 11:22
--- NOTE | 2016-12-11 13:27 | CONS ---
Date/Time of Note Date/Time of Note DATE: 12/11/16 TIME: 13:25 Assessment/Plan Assessment/Plan Chief Complaint/Hosp Course 1. Acute CVA. 2. AFIb w RVR 3. History of nicotine abuse. 4. Preserved LV function Problems: Additional Assessment/Plan 1) AC in 1-2 weeks 2) will add metoprolol for rate control 3) dw family in 20 min. address all details of care, risks and benefits of AC versus withholding AC. Pat was on xarelto in the past, but is was stopped unclear whether by MD or by patient herself Consultation Date/Type/Reason Admit Date/Time Dec 06, 2016 at 09:02 Type of Consultation: cv 24 HR Interval Summary Free Text/Dictation nonverbal, no distress, family member at bedside Subjective hx not possible: pt non-verbal Exam/Review of Systems Vital Signs Vitals Vital Signs Date Time Temp Pulse Resp B/P Pulse Ox O2 Delivery O2 Flow Rate FiO2 12/11/16 12:45 107 12/11/16 11:18 98.1 18 133/85 96 12/09/16 15:36 Room Air 12/07/16 15:59 2.0 Intake and Output 12/10/16 12/10/16 12/11/16 15:00 23:00 07:00 Intake Total 750 ml Balance 750 ml Exam Constitutional: frail, non-verbal Head: atraumatic, normocephalic Neck: supple Respiratory: clear to auscultation Cardiovascular: irregular rhythm Gastrointestinal: soft Musculoskeletal: nl extremities to inspection Extremities: normal pulses Results Result Diagram: 12/10/16 0615 12/10/16 0615 Medications Medications Current Medications Acetaminophen (Tylenol Tab) 650 mg Q6H PRN PO PAIN LEVEL 1-3 OR FEVER Last administered on 12/10/16 18:14; Admin Dose 650 MG; Start 12/06/16 at 09:30 Amiodarone HCl (Cordarone) 200 mg BID PO Last administered on 12/11/16 08:43 ; Admin Dose 200 MG; Start 12/06/16 at 21:00 Nicotine (Nicoderm 7 Mg/ 24 Hr) 1 patch DAILY TRANSDERM Last administered on 08:44; Admin Dose 1 PATCH; Start 12/07/16 at 09:00 Atorvastatin Calcium (Lipitor) 80 mg QHS PO Last administered on 12/10/16 21: 04; Admin Dose 80 MG; Start 12/06/16 at 21:00 Aspirin (Aspirin) 81 mg DAILY PO Last administered on 12/11/16 08:43; Admin Dose 81 MG; Start 12/07/16 at 09:00 Ondansetron HCl (Zofran Inj) 4 mg Q6H PRN IV NAUSEA AND/OR VOMITING; Start 12/06/16 at 09:30 Acetaminophen (Tylenol Supp) 650 mg Q6H PRN [place] PAIN LEVEL 1-3 OR FEVER; Start 12/06/16 at 09:30 Acetaminophen/ Hydrocodone Bitart ([place] (5/325)) 1 tab Q6H PRN PO MODERATE PAIN LEVEL 4-6; Start 12/06/16 at 09:30 Acetaminophen/ Hydrocodone Bitart ([place] (5/325)) 2 tab Q6H PRN PO SEVERE PAIN LEVEL 7-10; Start 12/06/16 at 09:30 Morphine Sulfate (morphine) 2 mg Q4H PRN IV SEVERE PAIN LEVEL 7-10; Start 12/06 at 09:30 Docusate Sodium (Colace) 100 mg Q12H PRN PO CONSTIPATION; Start 12/06/16 at 09: 30 Magnesium Hydroxide (Milk Of Mag) 30 ml DAILY PRN PO CONSTIPATION; Start at 09:30 Bisacodyl (Dulcolax Supp) 10 mg DAILY PRN [place] CONSTIPATION; Start 12/06/16 at 09 :30 Albuterol/ Ipratropium (Duoneb) 3 ml Q4 PRN HHN dyspnea; Start 12/06/16 at 09: 30 Metoprolol Tartrate (Lopressor) 5 mg Q12 IV Last administered on 12/11/16 08: 46; Admin Dose 5 MG; Start 12/07/16 at 21:00 Heparin Sodium (Porcine) (Heparin (5000 Units/0.5 ml)) 5,000 unit BID SC Last administered on 12/11/16 09:12; Admin Dose 5,000 UNIT; Start 12/10/16 at 21: 00 Pantoprazole (Protonix Tab) 40 mg DAILY@06 PO Last administered on 12/11/16 05:49; Admin Dose 40 MG; Start 12/11/16 at 06:00 MILTON ENGLAND MD Dec 11, 2016 13:27
--- NOTE | 2016-12-11 14:25 | PN ---
Date/Time of Note Date/Time of Note DATE: 12/11/16 TIME: 14:23 Assessment/Plan VTE Prophylaxis VTE Prophylaxis Intervention: SCD's Lines/Catheters IV Catheter Type (from Nrs): Peripheral IV Assessment/Plan Chief Complaint/Hosp Course Impression and plan 1. Acute CVA. Patient did have CT scan showing acute infarct in the left frontal lobe posteriorly/parietal lobe. Additionally MRI of the brain was ordered but did show to have recent subacute left MCA territory infarct but no acute parenchymal hemorrhage or midline shift. There is also seen late subacute to chronic right RETIREMENT CONSULTANT territory infarct and minimal chronic microvascular disease. Continue antiplatelet therapy as well as statin medication. Continue with neurologist recommendations. PT/OT/ST is following. 2. Reported history of cardiac arrhythmia. Echocardiogram with preserved ejection fraction. Auto Rental Clerk following for reported A. fib with RVR. Continue telemetry monitoring. Atrial fibrillation with rate not completely controlled at this time. Auto Rental Clerk following. Cardiac medication regimen per high scaler. Will monitor for stability 3. Suspect dyslipidemia continue on statin medication. 4. Obesity. Weight reduction to be advised. 5. History of nicotine abuse. Cessation was advised. Disposition and plan: Still with uncontrolled heart rate. Continue with high scaler recommendations. Monitor on telemetry. Continue in-house monitoring for now. Discussed plan of care with Dr. Atkinson Problems: Subjective 24 Hr Interval Summary Free Text/Dictation Family at bedside. Reportedly more verbal today. Exam/Review of Systems Vital Signs Vitals Vital Signs Date Time Temp Pulse Resp B/P Pulse Ox O2 Delivery O2 Flow Rate FiO2 12/11/16 12:45 107 12/11/16 11:18 98.1 18 133/85 96 12/09/16 15:36 Room Air 12/07/16 15:59 2.0 Intake and Output 12/10/16 12/10/16 12/11/16 15:00 23:00 07:00 Intake Total 750 ml Balance 750 ml Exam Constitutional: alert Psych: nl mood/affect, no complaints Head: normocephalic Neck: supple Respiratory: clear to auscultation Cardiovascular: other (Regular rhythm) Gastrointestinal: non-tender, soft Musculoskeletal: No nl gait and stance, No swelling Neurological: No DEMONSTRATOR SEWING TECHNIQUES II-XII intact, No nl speech Results Result Diagram: 12/10/1661412/10/16614 Medications Medications Current Medications Acetaminophen (Tylenol Tab) 650 mg Q6H PRN PO PAIN LEVEL 1-3 OR FEVER Last administered on 12/10/16 18:14; Admin Dose 650 MG; Start 12/06/16 at 09:30 Amiodarone HCl (Cordarone) 200 mg BID PO Last administered on 12/11/16 08:43 ; Admin Dose 200 MG; Start 12/06/16 at 21:00; Stop 12/18/16 at 20:59 Nicotine (Nicoderm 7 Mg/ 24 Hr) 1 patch DAILY TRANSDERM Last administered on 08:44; Admin Dose 1 PATCH; Start 12/07/16 at 09:00 Atorvastatin Calcium (Lipitor) 80 mg QHS PO Last administered on 12/10/16 21: 04; Admin Dose 80 MG; Start 12/06/16 at 21:00 Aspirin (Aspirin) 81 mg DAILY PO Last administered on 12/11/16 08:43; Admin Dose 81 MG; Start 12/07/16 at 09:00 Ondansetron HCl (Zofran Inj) 4 mg Q6H PRN IV NAUSEA AND/OR VOMITING; Start 12/06/16 at 09:30 Acetaminophen (Tylenol Supp) 650 mg Q6H PRN [place] PAIN LEVEL 1-3 OR FEVER; Start 12/06/16 at 09:30 Acetaminophen/ Hydrocodone Bitart ([place] (5/325)) 1 tab Q6H PRN PO MODERATE PAIN LEVEL 4-6; Start 12/06/16 at 09:30 Acetaminophen/ Hydrocodone Bitart ([place] (5/325)) 2 tab Q6H PRN PO SEVERE PAIN LEVEL 7-10; Start 12/06/16 at 09:30 Morphine Sulfate (morphine) 2 mg Q4H PRN IV SEVERE PAIN LEVEL 7-10; Start 12/06 at 09:30 Docusate Sodium (Colace) 100 mg Q12H PRN PO CONSTIPATION; Start 12/06/16 at 09: 30 Magnesium Hydroxide (Milk Of Mag) 30 ml DAILY PRN PO CONSTIPATION; Start at 09:30 Bisacodyl (Dulcolax Supp) 10 mg DAILY PRN [place] CONSTIPATION; Start 12/06/16 at 09 :30 Albuterol/ Ipratropium (Duoneb) 3 ml Q4 PRN HHN dyspnea; Start 12/06/16 at 09: 30 Heparin Sodium (Porcine) (Heparin (5000 Units/0.5 ml)) 5,000 unit BID SC Last administered on 12/11/16 09:12; Admin Dose 5,000 UNIT; Start 12/10/16 at 21: 00 Pantoprazole (Protonix Tab) 40 mg DAILY@06 PO Last administered on 12/11/16 05:49; Admin Dose 40 MG; Start 12/11/16 at 06:00 Metoprolol Tartrate (Lopressor) 25 mg BID PO ; Start 12/11/16 at 13:30 Amiodarone HCl (Cordarone) 200 mg DAILY PO ; Start 12/19/16 at 09:00 TIFFANIE TILLMAN Dec 11, 2016 14:25
[2016-12-11] MEDS: ACETAMINOPHEN 325 MG TAB PO PRN (15:44)
[2016-12-11] MEDS: METOPROLOL 25 MG TAB PO SCH ×2 (15:45→21:14)
[2016-12-11] MEDS: ATORVASTATIN 80 MG TAB PO SCH (21:13)
[2016-12-12] VITALS (11 sets, daily range): BP systolic 91–133; BP diastolic 59–78; PULSE 98–128; RESP 16–20
[2016-12-12] MEDS: PANTOPRAZOLE (EC) 40 MG TAB PO SCH (05:51)
[2016-12-12] MEDS: ASPIRIN 81 MG TAB PO SCH (09:29)
[2016-12-12] MEDS: AMIODARONE 200 MG TAB PO SCH ×2 (09:30→20:57)
[2016-12-12] MEDS: METOPROLOL 25 MG TAB PO SCH ×2 (09:30→20:58)
[2016-12-12] MEDS: NICOTINE (7 MG/24 HR) PATCH TRANSDERM SCH (09:30)
[2016-12-12] MEDS: HEPARIN 5,000 UNIT/0.5 ML VIAL SC SCH ×2 (10:18→21:00)
[2016-12-12] MEDS ORDERED: METO-448 PO (10:57)
[2016-12-12] MEDS ORDERED: AMIO200T2 PO (10:57)
[2016-12-12 11:55] LABS: CALCIUM 8.4 mg/dl (8.4-10.2); CREATININE 1.12 mg/dl (0.44-1.00); POTASSIUM 3.6 mmol/L (3.5-5.1)
--- NOTE | 2016-12-12 13:34 | PN ---
Date/Time of Note Date/Time of Note DATE: 12/12/16 TIME: 13:32 Assessment/Plan VTE Prophylaxis VTE Prophylaxis Intervention: SCD's Lines/Catheters IV Catheter Type (from [facility]): [place] Assessment/Plan Chief Complaint/Hosp Course Impression and plan 1. Acute CVA. Patient did have CT scan showing acute infarct in the left frontal lobe posteriorly/parietal lobe. Additionally MRI of the brain was ordered but did show to have recent subacute left MCA territory infarct but no acute parenchymal hemorrhage or midline shift. There is also seen late subacute to chronic right MIXING PLANT DUMPER territory infarct and minimal chronic microvascular disease. Continue antiplatelet therapy as well as statin medication. Continue with neurologist recommendations. PT/OT/ST is following. 2. Reported history of cardiac arrhythmia. Echocardiogram with preserved ejection fraction. [place] Laboratory Assistant following for reported A. fib with RVR. afib more controlled. continue on beta estefani 3. Suspect dyslipidemia continue on statin medication. 4. Obesity. Weight reduction to be advised. 5. History of nicotine abuse. Cessation was advised. Disposition and plan: improving. d.c planning. plan for home health with pt/ot/ st. d/c when [facility] set up Discussed plan of care with Dr. Atkinson Problems: Subjective 24 Hr Interval Summary Free Text/Dictation no s/s of distress. reportedly talking better per family Exam/Review of Systems Vital Signs Vitals Vital Signs Date Time Temp Pulse Resp B/P Pulse Ox O2 Delivery O2 Flow Rate FiO2 12/12/16 12:22 98 12/12/16 12:02 99.0 16 91/65 97 12/12/16 11:18 2.0 12/12/16 01:13 27 12/09/16 15:36 Room Air Intake and Output 12/11/16 12/11/16 12/12/16 15:00 23:00 07:00 Intake Total 120 ml Balance 120 ml Exam Constitutional: alert Psych: nl mood/affect, no complaints Head: normocephalic Neck: supple Respiratory: clear to auscultation Cardiovascular: other (Regular rhythm) Gastrointestinal: non-tender, soft Musculoskeletal: No nl gait and stance, No swelling Neurological: No FABRICATION SUPERVISOR II-XII intact, No nl speech Results Result Diagram: 12/10/16 0615 12/12/16 1055 Results 24 hrs Laboratory Tests Test 12/12/16 10:55 Sodium Level 142 Potassium Level 3.6 Chloride Level 106 Carbon Dioxide Level 26 Anion Gap 14 Blood Urea Nitrogen 18 Creatinine 1.12 H Glucose Level 89 Calcium Level 8.4 Medications Medications Current Medications Acetaminophen (Tylenol Tab) 650 mg Q6H PRN PO PAIN LEVEL 1-3 OR FEVER Last administered on 12/11/16 15:44; Admin Dose 650 MG; Start 12/06/16 at 09:30 Amiodarone HCl (Cordarone) 200 mg BID PO Last administered on 12/12/16 09:30 ; Admin Dose 200 MG; Start 12/06/16 at 21:00; Stop 12/18/16 at 20:59 Nicotine (Nicoderm 7 Mg/ 24 Hr) 1 patch DAILY TRANSDERM Last administered on 09:30; Admin Dose 1 PATCH; Start 12/07/16 at 09:00 Atorvastatin Calcium (Lipitor) 80 mg QHS PO Last administered on 12/11/16 21: 13; Admin Dose 80 MG; Start 12/06/16 at 21:00 Aspirin (Aspirin) 81 mg DAILY PO Last administered on 12/12/16 09:29; Admin Dose 81 MG; Start 12/07/16 at 09:00 Ondansetron HCl (Zofran Inj) 4 mg Q6H PRN IV NAUSEA AND/OR VOMITING; Start 12/06/16 at 09:30 Acetaminophen (Tylenol Supp) 650 mg Q6H PRN [place] PAIN LEVEL 1-3 OR FEVER; Start 12/06/16 at 09:30 Acetaminophen/ Hydrocodone Bitart ([place] (5/325)) 1 tab Q6H PRN PO MODERATE PAIN LEVEL 4-6; Start 12/06/16 at 09:30 Acetaminophen/ Hydrocodone Bitart ([place] (5/325)) 2 tab Q6H PRN PO SEVERE PAIN LEVEL 7-10; Start 12/06/16 at 09:30 Morphine Sulfate (morphine) 2 mg Q4H PRN IV SEVERE PAIN LEVEL 7-10; Start 12/06 at 09:30 Docusate Sodium (Colace) 100 mg Q12H PRN PO CONSTIPATION; Start 12/06/16 at 09: 30 Magnesium Hydroxide (Milk Of Mag) 30 ml DAILY PRN PO CONSTIPATION; Start at 09:30 Bisacodyl (Dulcolax Supp) 10 mg DAILY PRN [place] CONSTIPATION; Start 12/06/16 at 09 :30 Albuterol/ Ipratropium (Duoneb) 3 ml Q4 PRN HHN dyspnea; Start 12/06/16 at 09: 30 Heparin Sodium (Porcine) (Heparin (5000 Units/0.5 ml)) 5,000 unit BID SC Last administered on 12/12/16 10:18; Admin Dose 5,000 UNIT; Start 12/10/16 at 21: 00 Pantoprazole (Protonix Tab) 40 mg DAILY@06 PO Last administered on 12/12/16 05:51; Admin Dose 40 MG; Start 12/11/16 at 06:00 Metoprolol Tartrate (Lopressor) 25 mg BID PO Last administered on 12/12/16 09 :30; Admin Dose 25 MG; Start 12/11/16 at 13:30 Amiodarone HCl (Cordarone) 200 mg DAILY PO ; Start 12/19/16 at 09:00 TIFFANIE TILLMAN Dec 12, 2016 13:34
--- NOTE | 2016-12-12 13:52 | CONS ---
Date/Time of Note Date/Time of Note DATE: 12/12/16 TIME: 13:50 Assessment/Plan Assessment/Plan Additional Assessment/Plan Acute CVA, embolic Paroxysmal atrial fibrillation Borderline blood pressure Preserved ejection fraction -Blood pressure trend on the lower end, decrease Lopressor to 12.5 mg twice daily with holding parameters. Continue amiodarone. As per neurology recommendations, given size of stroke, recommendations were made to hold off on initiation of anticoagulation at the current time. Consultation Date/Type/Reason Admit Date/Time Dec 06, 2016 at 09:02 Initial Consult Date Type of Consultation: cv 24 HR Interval Summary Free Text/Dictation Denies palpitations, dizziness, shortness of breath or chest pain at rest or with activity. Exam/Review of Systems Vital Signs Vitals Vital Signs Date Time Temp Pulse Resp B/P Pulse Ox O2 Delivery O2 Flow Rate FiO2 12/12/16 12:22 98 12/12/16 12:02 99.0 16 91/65 97 12/12/16 11:18 2.0 12/12/16 01:13 27 12/09/16 15:36 Room Air Intake and Output 12/11/16 12/11/16 12/12/16 15:00 23:00 07:00 Intake Total 120 ml Balance 120 ml Exam Family at bedside, no apparent distress Constitutional: alert, oriented Head: normocephalic Respiratory: other (Coarse breath sounds bilaterally, no wheezing) Cardiovascular: irregular rhythm, other (S1-S2 heard) Gastrointestinal: bowel sounds, non-tender, soft Extremities: other (No edema) Results Result Diagram: 12/10/16 0615 12/12/16 1055 Results 24 hrs Laboratory Tests Test 12/12/16 10:55 Sodium Level 142 Potassium Level 3.6 Chloride Level 106 Carbon Dioxide Level 26 Anion Gap 14 Blood Urea Nitrogen 18 Creatinine 1.12 H Glucose Level 89 Calcium Level 8.4 Medications Medications Current Medications Acetaminophen (Tylenol Tab) 650 mg Q6H PRN PO PAIN LEVEL 1-3 OR FEVER Last administered on 12/11/16 15:44; Admin Dose 650 MG; Start 12/06/16 at 09:30 Amiodarone HCl (Cordarone) 200 mg BID PO Last administered on 12/12/16 09:30 ; Admin Dose 200 MG; Start 12/06/16 at 21:00; Stop 12/18/16 at 20:59 Nicotine (Nicoderm 7 Mg/ 24 Hr) 1 patch DAILY TRANSDERM Last administered on 09:30; Admin Dose 1 PATCH; Start 12/07/16 at 09:00 Atorvastatin Calcium (Lipitor) 80 mg QHS PO Last administered on 12/11/16 21: 13; Admin Dose 80 MG; Start 12/06/16 at 21:00 Aspirin (Aspirin) 81 mg DAILY PO Last administered on 12/12/16 09:29; Admin Dose 81 MG; Start 12/07/16 at 09:00 Ondansetron HCl (Zofran Inj) 4 mg Q6H PRN IV NAUSEA AND/OR VOMITING; Start 12/06/16 at 09:30 Acetaminophen (Tylenol Supp) 650 mg Q6H PRN [place] PAIN LEVEL 1-3 OR FEVER; Start 12/06/16 at 09:30 Acetaminophen/ Hydrocodone Bitart ([place] (5/325)) 1 tab Q6H PRN PO MODERATE PAIN LEVEL 4-6; Start 12/06/16 at 09:30 Acetaminophen/ Hydrocodone Bitart ([place] (5/325)) 2 tab Q6H PRN PO SEVERE PAIN LEVEL 7-10; Start 12/06/16 at 09:30 Morphine Sulfate (morphine) 2 mg Q4H PRN IV SEVERE PAIN LEVEL 7-10; Start 12/06 at 09:30 Docusate Sodium (Colace) 100 mg Q12H PRN PO CONSTIPATION; Start 12/06/16 at 09: 30 Magnesium Hydroxide (Milk Of Mag) 30 ml DAILY PRN PO CONSTIPATION; Start at 09:30 Bisacodyl (Dulcolax Supp) 10 mg DAILY PRN [place] CONSTIPATION; Start 12/06/16 at 09 :30 Albuterol/ Ipratropium (Duoneb) 3 ml Q4 PRN HHN dyspnea; Start 12/06/16 at 09: 30 Heparin Sodium (Porcine) (Heparin (5000 Units/0.5 ml)) 5,000 unit BID SC Last administered on 12/12/16 10:18; Admin Dose 5,000 UNIT; Start 12/10/16 at 21: 00 Pantoprazole (Protonix Tab) 40 mg DAILY@06 PO Last administered on 12/12/16 05:51; Admin Dose 40 MG; Start 12/11/16 at 06:00 Metoprolol Tartrate (Lopressor) 25 mg BID PO Last administered on 12/12/16t 09 :30; Admin Dose 25 MG; Start 12/11/16 at 13:30 Amiodarone HCl (Cordarone) 200 mg DAILY PO ; Start 12/19/16 at 09:00 Bruno Bazzi DO Dec 12, 2016 13:52
[2016-12-12] MEDS: ATORVASTATIN 80 MG TAB PO SCH (20:56)
[2016-12-13] VITALS (10 sets, daily range): BP systolic 102–118; BP diastolic 58–82; PULSE 70–118; RESP 18–19
[2016-12-13] MEDS: PANTOPRAZOLE (EC) 40 MG TAB PO SCH ×2 (05:48→05:51)
[2016-12-13 07:36] LABS: BASOPHILS % 0.1 % (0.0-2.0); EOSINOPHILS # 0.1 10^3/ul (0.0-0.5); EOSINOPHILS % 0.9 % (0.0-7.0); HEMATOCRIT 39.4 % (37.0-47.0); HEMOGLOBIN 13.3 g/dl (12.0-16.0); LYMPHOCYTES # 1.2 10^3/ul (0.8-2.9); LYMPHOCYTES % 17.4 % (15.0-51.0); MEAN CORPUSCULAR HEMOGLOBIN 29.9 pg (29.0-33.0); MEAN CORPUSCULAR HGB CONC 33.8 g/dl (32.0-37.0); MEAN CORPUSCULAR VOLUME 88.5 fl (82.0-101.0); MEAN PLATELET VOLUME 11.4 fl (7.4-10.4); MONOCYTE # 0.6 10^3/ul (0.3-0.9); MONOCYTES % 9.1 % (0.0-11.0); NEUTROPHIL # 5.1 10^3/ul (1.6-7.5); NEUTROPHILS % 72.2 % (39.0-77.0); PLATELET COUNT 238 10^3/UL (140-415); RED BLOOD COUNT 4.45 10^6/ul (4.20-5.40); RED CELL DISTRIBUTION WIDTH 12.2 % (11.5-14.5)
[2016-12-13 08:16] LABS: CALCIUM 9.1 mg/dl (8.4-10.2); CREATININE 1.12 mg/dl (0.44-1.00); POTASSIUM 3.4 mmol/L (3.5-5.1)
[2016-12-13] MEDS: AMIODARONE 200 MG TAB PO SCH (10:13)
[2016-12-13] MEDS: ASPIRIN 81 MG TAB PO SCH (10:14)
[2016-12-13] MEDS: METOPROLOL 25 MG TAB PO SCH (10:14)
[2016-12-13] MEDS: HEPARIN 5,000 UNIT/0.5 ML VIAL SC SCH (10:17)
[2016-12-13] MEDS: NICOTINE (7 MG/24 HR) PATCH TRANSDERM SCH (12:28)
[2016-12-13] MEDS ORDERED: POTASSIUM CHLORIDE (SR) 20 MEQ TAB PO STA (16:37)
--- NOTE | 2016-12-13 16:38 | CONS ---
Date/Time of Note Date/Time of Note DATE: 12/13/16 TIME: 16:35 Assessment/Plan Assessment/Plan Additional Assessment/Plan Acute CVA, embolic Paroxysmal atrial fibrillation Borderline blood pressure Preserved ejection fraction -Blood pressure trend improved, heart rate slightly on the higher side, would give 1 dose of IV digoxin. Continue amiodarone, anticoagulation when okay by our neurology colleagues. Maintain potassium above 4.0 and magnesium above 2.0. Consultation Date/Type/Reason Admit Date/Time Dec 06, 2016 at 09:02 Type of Consultation: cv 24 HR Interval Summary Free Text/Dictation Denies palpitations, dizziness, shortness of breath Exam/Review of Systems Vital Signs Vitals Vital Signs Date Time Temp Pulse Resp B/P Pulse Ox O2 Delivery O2 Flow Rate FiO2 12/13/16 16:27 83 12/13/16 15:52 98.0 19 102/58 98 12/13/16 02:27 2.0 27 12/09/16 15:36 Room Air Intake and Output 12/12/16 12/12/16 12/13/16 15:00 23:00 07:00 Intake Total 540 ml 120 ml Balance 540 ml 120 ml Exam No apparent distress Constitutional: alert, oriented Head: normocephalic Respiratory: other (Coarse breath sounds bilaterally, no wheezing) Cardiovascular: irregular rhythm, other (S1-S2 heard) Gastrointestinal: bowel sounds, non-tender, soft Extremities: other (No significant edema) Results Result Diagram: 12/13/16 0639 12/13/16 0639 Results 24 hrs Laboratory Tests Test 12/13/16 06:39 White Blood Count 7.0 Red Blood Count 4.45 Hemoglobin 13.3 Hematocrit 39.4 Mean Corpuscular Volume 88.5 Mean Corpuscular Hemoglobin 29.9 Mean Corpuscular Hemoglobin Concent 33.8 Red Cell Distribution Width 12.2 Platelet Count 238 Mean Platelet Volume 11.4 H Neutrophils % 72.2 Lymphocytes % 17.4 Monocytes % 9.1 Eosinophils % 0.9 Basophils % 0.1 Nucleated Red Blood Cells % 0.0 Neutrophils # 5.1 Lymphocytes # 1.2 Monocytes # 0.6 Eosinophils # 0.1 Basophils # 0.0 Nucleated Red Blood Cells # 0.0 Sodium Level 144 Potassium Level 3.4 L Chloride Level 108 Carbon Dioxide Level 29 Anion Gap 10 Blood Urea Nitrogen 18 Creatinine 1.12 H Glucose Level 98 Calcium Level 9.1 Medications Medications Current Medications Acetaminophen (Tylenol Tab) 650 mg Q6H PRN PO PAIN LEVEL 1-3 OR FEVER Last administered on 12/11/16 15:44; Admin Dose 650 MG; Start 12/06/16 at 09:30 Amiodarone HCl (Cordarone) 200 mg BID PO Last administered on 12/13/16 10:13 ; Admin Dose 200 MG; Start 12/06/16 at 21:00; Stop 12/18/16 at 20:59 Nicotine (Nicoderm 7 Mg/ 24 Hr) 1 patch DAILY TRANSDERM Last administered on 12:28; Admin Dose 1 PATCH; Start 12/07/16 at 09:00 Atorvastatin Calcium (Lipitor) 80 mg QHS PO Last administered on 12/12/16 20: 56; Admin Dose 80 MG; Start 12/06/16 at 21:00 Aspirin (Aspirin) 81 mg DAILY PO Last administered on 12/13/16 10:14; Admin Dose 81 MG; Start 12/07/16 at 09:00 Ondansetron HCl (Zofran Inj) 4 mg Q6H PRN IV NAUSEA AND/OR VOMITING; Start 12/06/16 at 09:30 Acetaminophen (Tylenol Supp) 650 mg Q6H PRN [place] PAIN LEVEL 1-3 OR FEVER; Start 12/06/16 at 09:30 Acetaminophen/ Hydrocodone Bitart ([place] (5/325)) 1 tab Q6H PRN PO MODERATE PAIN LEVEL 4-6; Start 12/06/16 at 09:30 Acetaminophen/ Hydrocodone Bitart ([place] (5/325)) 2 tab Q6H PRN PO SEVERE PAIN LEVEL 7-10; Start 12/06/16 at 09:30 Morphine Sulfate (morphine) 2 mg Q4H PRN IV SEVERE PAIN LEVEL 7-10; Start 12/06 at 09:30 Docusate Sodium (Colace) 100 mg Q12H PRN PO CONSTIPATION; Start 12/06/16 at 09: 30 Magnesium Hydroxide (Milk Of Mag) 30 ml DAILY PRN PO CONSTIPATION; Start at 09:30 Bisacodyl (Dulcolax Supp) 10 mg DAILY PRN [place] CONSTIPATION; Start 12/06/16 at 09 :30 Albuterol/ Ipratropium (Duoneb) 3 ml Q4 PRN HHN dyspnea; Start 12/06/16 at 09: 30 Heparin Sodium (Porcine) (Heparin (5000 Units/0.5 ml)) 5,000 unit BID SC Last administered on 12/13/16 10:17; Admin Dose 5,000 UNIT; Start 12/10/16 at 21: 00 Pantoprazole (Protonix Tab) 40 mg DAILY@06 PO Last administered on 12/12/16 05:51; Admin Dose 40 MG; Start 12/11/16 at 06:00 Amiodarone HCl (Cordarone) 200 mg DAILY PO ; Start 12/19/16 at 09:00 Metoprolol Tartrate (Lopressor) 12.5 mg BID PO Last administered on 12/13/16 10:14; Admin Dose 12.5 MG; Start 12/12/16 at 21:00 Bruno aBzzi DO Dec 13, 2016 16:38
[2016-12-13] MEDS: DIGOXIN 500 MCG INJ IV ONE ×2 (17:50→18:13)
[2016-12-13] MEDS ORDERED: MAGNESIUM SULFATE 1 GM/D5W 100 ML IVPB ONE (18:00)
[2016-12-13] MEDS ORDERED: DIGOXIN 0.25 MG TAB PO ONE (18:30)
--- NOTE | 2016-12-14 09:09 | DS ---
DATE OF ADMISSION: 12/06/2016 DATE OF DISCHARGE: 12/13/2016 FINAL DIAGNOSES: 1. Acute stroke in the left middle cerebral artery territory distribution. 2. Paroxysmal atrial fibrillation. 3. Essential hypertension. 4. Dyslipidemia. 5. Nicotine use. CONSULTANTS: 1. Dr. Mayur Huerta MD neurology. 2. Dr. Bruno Bazzi DO, Cardiology. HOSPITAL COURSE: This is a 71-year-old female with a past medical history of paroxysmal atrial fibrillation with a history of cardiac ablation, essential hypertension, and dyslipidemia who was brought to [facility] because of sudden onset of aphasia. There was no reported focal weakness. The patient's brain CT scan that was done in the emergency room was negative for any acute findings. The patient was admitted to inpatient setting for further evaluation. The patient underwent a brain MRI that showed recent left MCA territory infarct with a subacute to chronic right HOTEL OR MOTEL CLEANING SUPERVISOR territory infarct. The patient was maintained on aspirin and high-dose statins. The patient was evaluated by Physical Therapy, Speech Therapy, and Occupational Therapy. Physical Therapy recommended continuation of further physical therapy. Speech Therapy recommended pureed diet with thin liquids. The patient has a history of paroxysmal atrial fibrillation. She is status post cardiac ablation. She was maintained on amiodarone. The patient needs systemic anticoagulation because of paroxysmal atrial fibrillation and the current stroke which is embolic in nature. However, as per Neurology, the patient needs to be off systemic anticoagulation for at least two weeks before the patient can be started on therapeutic anticoagulation. The patient has underlying essential hypertension. She was maintained on antihypertensives for the same. The patient's antihypertensives were adjusted to obtain optimal blood pressure control. The patient is a current nicotine user. The patient was maintained on nicotine patch. The patient was advised on the importance of quitting the use of nicotine. The patient has underlying dyslipidemia. She was maintained on a low-cholesterol diet and the patient was maintained on statins. The patient's hemoglobin A1c was within normal limits. The patient had a stable hospital course. The patient is stable to be discharged home with continued physical therapy. DISCHARGE PLAN: The patient will be discharged home today with home health. She was instructed on medications as per prescription. She was instructed to follow up with her surgical forceps fabricator in two weeks for resumption of her Xarelto. She was instructed to follow up with outpatient neurology in one to two weeks. The patient's family verbalized understanding of the discharge instructions. DISCHARGE CONDITION: Stable. DISCHARGE MEDICATIONS: 1. Amiodarone 200 mg p.o. daily. 2. Aspirin 81 mg p.o. daily. 3. Atorvastatin 80 mg p.o. at bedtime. 4. Lopressor 25 mg p.o. b.i.d. 5. Protonix 40 mg p.o. daily. DIAGNOSTIC DATA: 1. Brain MRI: Recent subacute left MCA territory infarct. No acute parenchymal hemorrhage or midline shift. Late subacute to chronic right HOTEL OR MOTEL CLEANING SUPERVISOR territory infarct. 2. 2D echocardiogram: Ejection fraction of 65 percent. Estimated peak PA systolic pressure of 33 mmHg. Trace aortic valve regurgitation. Mild tricuspid regurgitation. Mild mitral regurgitation. 3. Latest CBC: WBC 7.0, hemoglobin 13.3, hematocrit 39.4, platelet count 238. 4. Latest BMP: Sodium 144, potassium 3.4, chloride 108, bicarbonate 29, anion gap 10, BUN 18, creatinine 1.1, glucose 98, calcium 9.1. 5. Hemoglobin A1c: 5.2. 6. Fasting lipid panel: Triglycerides 106, total cholesterol 211, LDL 154, HDL 36. At this time, I would like to thank all the consultants for seeing the patient and providing clinical recommendations. The case and management of this patient was fully discussed with Dr. Boyd. Approximately 35 minutes was spent on coordinating the discharge on this patient. Dictated By: Todd Velez NP /rudy/yfn /Document#: [id number] [id number]
[2016-12-19] MEDS ORDERED: AMIODARONE 200 MG TAB PO SCH (09:00)
== END 2016-12-13 19:00 | disposition home health service (06) | DRG 66 ==
LOC: E/R 06:49 → TEL 09:02
PROVIDERS: ADMIT Hospitalist; ATTEND Hospitalist
DX: I63.40 Cerebral infarction due to embolism of unspecified cerebral artery (principal); I48.0 Paroxysmal atrial fibrillation; R47.01 Aphasia; R00.1 Bradycardia, unspecified; J44.9 Chronic obstructive pulmonary disease, unspecified; I10 Essential (primary) hypertension; E78.5 Hyperlipidemia, unspecified; D64.9 Anemia, unspecified; F17.210 Nicotine dependence, cigarettes, uncomplicated; R09.02 Hypoxemia; E66.9 Obesity, unspecified; Z68.31 Body mass index [BMI] 31.0-31.9, adult; Z79.82 Long term (current) use of aspirin; Z79.02 Long term (current) use of antithrombotics/antiplatelets
CPT/HCPCS: 36415; 36600; 70450; 70551; 71010; 80048; 80053; 80061; 80307; 81003; 82550; 82553; 82803; 82962; 83036; 83735; 83880; 84100; 84436; 84443; 84479; 84484; 85025; 85610; 85730; 86850; 86900; 86901; 90686; 92526; 92610; 93005; 93306; 94664; 97110; 97116; 97161; 97167; 97530; C9113; J1644; J3475; J7030

== ENCOUNTER 2017-04-14 15:02 | Emergency (ER) | END 2017-04-14 17:17 | disposition home or self-care (01) ==

== ENCOUNTER 2017-05-26 21:38 | Emergency (ER) | END 2017-05-27 07:30 | disposition home or self-care (01) ==

== ENCOUNTER 2018-07-28 14:29 | Emergency (ER) | payer OTHER ==
[~2018-07-28] VITALS: Ht 165.1 cm; Wt 95.1 kg
[~2018-07-28 14:29] MED LIST changes: -ACET325T40 PO; +ALBU18HF INHALATION; -AMIO200T PO; +AMIO200T4 PO; +APIX5TAB PO; +ATOR-2 PO; +HYDR-4011 PO; -NICO-523 TRANSDERM; +PANT40TA4 PO; +PRED20TA PO; -RIVA10TA PO
[2018-07-28 14:36] VITALS: Ht 165.1 cm; Wt 95.1 kg
[2018-07-28] MEDS ORDERED: IPRATROPIUM (NEB) 0.5 MG/2.5 ML AMP NEB STA (16:35)
[2018-07-28] MEDS ORDERED: ALBUTEROL 0.083% (NEB) 2.5 MG/3 ML AMP NEB STA (16:35)
[2018-07-28] MEDS ORDERED: ACET-141 PO (16:49)
[2018-07-28] MEDS ORDERED: AMOX1TAB10 PO (16:49)
[2018-07-28] MEDS ORDERED: CRES20 PO (16:50)
[2018-07-28] MEDS ORDERED: METO-335 PO (16:50)
[2018-07-28] MEDS ORDERED: APIX5TAB PO (16:50)
[2018-07-28] MEDS ORDERED: PANT40TA4 PO (16:51)
[2018-07-28] MEDS ORDERED: ALBU18HF INHALATION (18:30)
[2018-07-28] MEDS ORDERED: PRED20TA PO (18:30)
--- NOTE | 2018-07-28 18:32 | ERD ---
ER Documentation Chief Complaint Chief Complaint Pleuritic CP with SOB X 1 day HPI 72-year-old female with a history of hypertension, A. fib, and possibly CHF presenting with complaints of shortness of breath for the past few days. About 1 week ago, she developed symptoms of a cold. She was seen by her primary care doctor who prescribed her Augmentin that she has been taking. She denies any fevers or chills. No phlegm production. However she does complain of shortness of breath that is not improving. Symptoms are worse with exertion, but present at rest. Denies any associated chest pain at this time. No leg swelling. ROS All systems reviewed and are negative except as per history of present illness. Medications Home Meds Active Scripts Albuterol Sulfate* (Ventolin HFA*) 18 Gm Hfa.aer.ad, 2 PUFF INHALATION Q4H, #1 INHALER Prov:SUJATA SILVA MD 07/28/18 Prednisone* (Prednisone*) 20 Mg Tab, 60 MG PO DAILY for 5 Days, TAB Prov:SUJATA SILVA MD 07/28/18 Reported Medications Pantoprazole* (Pantoprazole*) 40 Mg Tablet., 40 MG PO AC BREAKFAST, TAB 07/28/18 Apixaban* (Eliquis*) 5 Mg Tablet, 5 MG PO BID, TAB 07/28/18 Metoprolol Succinate* (Toprol XL*) 25 Mg Tab.sr.24h, 25 MG PO DAILY, #30 TAB 07/28/18 Rosuvastatin Calcium* (Crestor*) 20 Mg Tablet, 20 MG PO QHS, #30 TAB 07/28/18 Amoxicillin/Potassium Clav (Amox-Clav 875-125 mg Tablet) 875-125 mg Tab, 1 TAB PO BID, #20 TAB START DATE 07/19/18 07/28/18 Acetaminophen* (Acetaminophen*) 500 MG Extra Strength Tablet, 1000 MG PO Q8H PRN for PAIN AND OR ELEVATED TEMP, TAB 07/28/18 Discontinued Reported Medications Apixaban* (Eliquis*) 5 Mg Tablet, 5 MG PO BID, TAB 04/14/17 Atorvastatin* (Atorvastatin*) 80 Mg Tablet, 80 MG PO QHS, #30 TAB 04/14/17 Pantoprazole* (Pantoprazole*) 40 Mg Tablet., 40 MG PO AC BREAKFAST, TAB 04/14/17 Amiodarone Hcl* (Amiodarone Hcl*) 200 Mg Tablet, 100 MG PO DAILY, #30 TAB 04/14/17 Discontinued Scripts Prednisone* (Prednisone*) 20 Mg Tab, 40 MG PO DAILY for 5 Days, TAB Prov:AMAURI HOLLEY MD 05/27/17 Albuterol Sulfate* (Ventolin HFA*) 18 Gm Hfa.aer.ad, 2 PUFF INHALATION Q4H, #1 INHALER Prov:AMAURI HOLLEY MD 05/27/17 Hydrocodone/Acetaminophen ([place] 5-325 Tablet) 1 Each Tablet, 1 TAB PO Q6H PRN for PAIN, #20 TAB Prov:BETY BRIDGES DO 04/14/17 Allergies Allergies: Coded Allergies: No Known Drug Allergies (Verified Allergy, Mild, 07/28/18) PMhx/Soc History of Surgery: Yes (ablation heart) Anesthesia Reaction: No Hx Neurological Disorder: Yes (CVA) Hx Respiratory Disorders: No Hx Cardiac Disorders: Yes (htn,afib, hyperlipidemia) Hx Psychiatric Problems: No Hx Miscellaneous Medical Probl: No Hx Alcohol Use: No Hx Substance Use: No Hx Tobacco Use: Yes Smoking Status: Former smoker FmHx Family History: No coronary disease Physical Exam Vitals Vital Signs Date Temp Pulse Resp B/P (MAP) Pulse Ox O2 O2 Flow FiO2 Time Delivery Rate 07/28/18 98.4 75 19 106/69 96 Room Air 18:41 (81) 07/28/18 75 20 90/52 (65) 99 Room Air 18:10 07/28/18 56 20 98 21 17:08 07/28/18 58 20 112/72 98 Room Air 15:35 (85) 07/28/18 96.9 61 18 162/97 98 14:36 (118) Physical Exam Const: No acute distress Head: Atraumatic Eyes: Normal Conjunctiva ENT: Normal External Ears, Nose and Mouth. Neck: Full range of motion. No meningismus. Resp: Diminished breath sounds bilaterally with end expiratory wheezing. No rales or rhonchi Cardio: Regular rate and rhythm, no murmurs Abd: Soft, non tender, non distended. Normal bowel sounds Skin: No petechiae or rashes Back: No midline or flank tenderness Ext: No cyanosis, or edema Neur: Awake and alert Psych: Normal Mood and Affect Result Diagram: 07/28/18 1536 07/28/18 1635 Results 24 hrs Laboratory Tests Test 07/28/18 15:36 07/28/18 16:35 White Blood Count 8.0 10^3/ul Red Blood Count 4.52 10^6/ul Hemoglobin 13.3 g/dl Hematocrit 40.7 % Mean Corpuscular Volume 90.0 fl Mean Corpuscular Hemoglobin 29.4 pg Mean Corpuscular Hemoglobin Concent 32.7 g/dl Red Cell Distribution Width 11.9 % Platelet Count 283 10^3/UL Mean Platelet Volume 10.4 fl Immature Granulocytes % 0.500 % Neutrophils % 62.5 % Lymphocytes % 26.2 % Monocytes % 8.2 % Eosinophils % 2.5 % Basophils % 0.1 % Nucleated Red Blood Cells % 0.0 /100WBC Immature Granulocytes # 0.040 10^3/ul Neutrophils # 5.0 10^3/ul Lymphocytes # 2.1 10^3/ul Monocytes # 0.7 10^3/ul Eosinophils # 0.2 10^3/ul Basophils # 0.0 10^3/ul Nucleated Red Blood Cells # 0.0 10^3/ul Sodium Level 140 mmol/L Potassium Level 4.1 mmol/L Chloride Level 109 mmol/L Carbon Dioxide Level 25 mmol/L Anion Gap 6 Blood Urea Nitrogen 16 mg/dl Creatinine 1.35 mg/dl Est Glomerular Filtrat Rate mL/min mL/min Glucose Level 92 mg/dl Calcium Level 8.6 mg/dl Troponin I < 0.012 ng/ml B-Type Natriuretic Peptide 420 PG/ML Current Medications Medications Dose Sig/[place] Start Time Status Last (Trade) Ordered Route PRN Stop Time Admin Dose Reason Admin Albuterol 5 mg ONCE STAT 07/28/18 DC 07/28/18 (Proventil NEB 16:35 17:07 0.083% (Neb)) 07/28/18 16:36 Ipratropium 0.5 mg ONCE STAT 07/28/18 DC 07/28/18 [place] NEB 16:35 17:07 (Atrovent 07/28/18 16:36 0.02% (Neb)) Procedures/MDM EMERGENT LABS AND DIAGNOSTIC STUDIES: Lab Results above were reviewed and interpreted by me. CBC: no anemia or evidence of infection BMP: no e/o clinically significant electrolyte abnormality severe acidosis, al kalosis, renal failure, diabetic ketoacidosis Troponin within normal limits, not indicative of cardiac ischemia 12-lead EKG was interpreted by Abdirashid Silva MD: Sinus bradycardia 59 bpm Normal axis Normal intervals No acute ST or T wave changes suggestive of acute ischemia or STEMI. Radiology Results as interpreted by Radiology below were reviewed by Cas Silva MD: Chest x-ray shows no acute abnormalities Initial Nursing notes reviewed. Previous Medical Records requested via the Electronic Health Record. EMERGENCY DEPARTMENT COURSE / MEDICAL DECISION MAKING: Patient is presenting with shortness of breath after recent respiratory illness. Vitals are unremarkable. She did have evidence of bronchospasm on exam which was treated with breathing treatments with improvement of her symptoms. Labs did not show any significant abnormalities. No evidence of pneumonia or pneumothorax on x-ray. Doubt ACS or PE. Patient will be discharged with prescription for prednisone and Ventolin. Return precautions given. Patient's blood pressure was elevated (>120/80) but appears stable without evidence of hypertensive emergency or urgency. The patient was counseled about the risks of hypertension and urged to pursue outpatient monitoring and therapy within a week with their primary care physician. Departure Diagnosis: Primary Impression: Bronchitis, acute, with bronchospasm Condition: Stable Patient Instructions: Bronchitis With Wheezing (Adult) SUJATA SILVA MD July 28, 2018 18:32
[2018-07-28 18:41] VITALS: BP 106/69; PULSE 75; RESP 19
== END 2018-07-28 18:43 | disposition home or self-care (01) ==
LOC: E/R 14:29
DX: J20.9 Acute bronchitis, unspecified (principal); I10 Essential (primary) hypertension; Z86.73 Personal history of transient ischemic attack (TIA), and cerebral infarction without residual deficits; Z87.891 Personal history of nicotine dependence; Z79.01 Long term (current) use of anticoagulants
CPT/HCPCS: 36415; 71045; 80048; 83880; 84484; 85025; 93005; 94664